=== PATIENT | female | born 1970 | race Caucasian/White ===

== ENCOUNTER 2021-06-11 12:14 | Observation (INO) | payer OTHER, SELFPAY ==
[2021-06-11] VITALS (17 sets, daily range): BP systolic 122–152; BP diastolic 65–88; PULSE 62–88; RESP 14–21; TEMP 36.4–37; O2SAT 98–100
--- NOTE | ~2021-06-11 | MR_ITS ---
EXAMINATION: MR brain/brain stem wo/w con DATE: 06/12/2021 09:03 INDICATION: Left hand and face numbness. Stroke. TECHNIQUE: Magnetic resonance imaging (MRI) of the brain and brainstem was performed without and with 13 mL MultiHance intravenous contrast. Sequences included sagittal and axial T1-weighted FSE, axial diffusion-weighted FS EPI, axial T2*-weighted GRE, axial T2-weighted FLAIR Propeller, and axial T2-we ighted Propeller. Postcontrast sequences included axial, sagittal, and coronal T1-weighted FSE. Appar ent diffusion coefficient (ADC) maps were created. COMPARISON: Head CT 06/11/2021 FINDINGS: There is no intracranial hemorrhage, acute infarction, or abnormal intracranial mass lesion . The ventricles are normal in size. There is mild mucosal thickening in the paranasal sinuses. The o rbits are normal. There is a right mastoid effusion. IMPRESSION: 1. Normal brain. Reviewed, dictated and finalized at location E. H CLEARING LABORER IMPRESSION: 1. Normal brain.
--- NOTE | ~2021-06-11 | CT_ITS ---
EXAMINATION: CTA brain carotid DATE: 06/13/2021 08:09 INDICATION: Left hand and face numbness. Transient ischemic attack. TECHNIQUE: Computed tomographic angiography (CTA) of the head was performed without and with 100 mL O mnipaque-350 intravenous contrast. CTA of the neck was performed with intravenous contrast. Automated exposure control and iterative reconstruction technique were employed. The dose-length product was 1 593.91 mGy-cm. Maximum intensity projection and volume rendered 3D-reconstructions were created by addie weiss technologist on a separate workstation. COMPARISON: Head CT 06/11/2021 FINDINGS: HEAD CTA: There is no intracranial hemorrhage, acute infarction, or abnormal intracranial mass lesion . The ventricles are normal in size. There is mild mucosal thickening in the paranasal sinuses. The o rbits are normal. There is a small right mastoid effusion. The vertebral arteries are codominant. The re is no significant stenosis of basilar artery or the posterior cerebral arteries. There is mild ricky nosis of the intracranial internal carotid arteries. There is no significant stenosis of the anterior or middle cerebral arteries. Anterior communicating artery is normal. The posterior communicating ar teries are normal. There is no aneurysm. NECK CTA: There are no pathologically enlarged lymph nodes. There is no significant stenosis of the v ertebral arteries. There is minimal plaque in the proximal internal carotid arteries. There is 0% ricky nosis of the proximal right internal carotid artery relative to normal distal artery lumen diameter ( NASCET criteria). There is 0% stenosis of the proximal left internal carotid artery relative to abimbola l distal artery lumen diameter. There is moderate cervical spondylosis. IMPRESSION: 1. Normal brain. No aneurysm or significant intracranial arterial stenosis. 2. 0% stenosis of the proximal internal carotid arteries relative to normal distal artery lumen diame ters (NASCET criteria). Reviewed, dictated and finalized at location E. RMATION SYSTEMS SECURITY DEVELOPER IMPRESSION: 1. Normal brain. No aneurysm or significant intracranial arterial stenosis. 2. 0% stenosis of the proximal internal carotid arteries relative to normal dis gloria artery lumen diameters (NASCET criteria).
--- NOTE | ~2021-06-11 | XR_ITS ---
XR chest 2V DATE: 06/11/2021 13:19 INDICATION: Stroke symptoms. Vision change. Left hand and facial numbness. TECHNIQUE: PA and lateral views COMPARISON: 04/26/2016 2 view chest FINDINGS: Normal heart size. No hilar or mediastinal enlargement. No pulmonary infiltrate or consolid ation, pleural effusion or pulmonary vascular congestion or pneumothorax. IMPRESSION: No active cardiopulmonary disease Reviewed, dictated and finalized at location B. GER FAST FOOD
--- NOTE | ~2021-06-11 | CT_ITS ---
EXAMINATION: CT brain wo con DATE: 06/11/2021 13:17 INDICATION: Left vision change. Numbness of left hand and face. Headache. TECHNIQUE: Computed tomography (CT) of the head was performed without intravenous contrast. The mA wa s adjusted according to patient size. Iterative reconstruction technique was employed. Exam dose: 60 5.33 mGy-cm total exam DLP. COMPARISON: 10/01/2004 CT brain FINDINGS: No intracranial mass lesion or hemorrhage or cerebrovascular accident. No midline shift or mass effect effect. Normal ventricular size. Mild bilateral carotid siphon internal carotid artery calcification. Normal call-white matter differe ntiation. The sella turcica and suprasellar area and orbits are unremarkable. No subdural or epidural hematoma is detected. There is minimal mucoperiosteal thickening along the lateral wall of left maxillary sinus. There are a few opacified right mastoid air cells. The included paranasal sinuses and the mastoid air cells oth erwise are normally developed and aerated. No fracture or bone destruction of the cranial vault. IMPRESSION: Mild internal carotid artery atherosclerotic calcification No acute intracranial abnormality is identified Reviewed, dictated and finalized at Location A. Reviewed, dictated and finalized at location B. AY TRAFFIC CONTROLLER
--- NOTE | ~2021-06-11 | US_ITS ---
EXAMINATION: US carotid duplex BI DATE: 06/12/2021 09:24 INDICATION: Transient ischemic episode with left-sided subjective visual and left-sided weakness and disturbance of skin sensation. TECHNIQUE: Grayscale, color Doppler, and pulsed Doppler images of the cervical carotid arteries were obtained. The degree of vessel stenosis is placed in one of the following categories: normal, <50%, 5 0-69%, >=70% but less than near-occlusion, near-occlusion, or total occlusion. Note that percent sten osis relative to normal distal artery lumen diameter is indirectly measured from velocity measurement s as described by Bret, et al. Radiology 2003; 229:340-346. COMPARISON: None. FINDINGS: RIGHT: The right common carotid artery (CCA) peak systolic velocity (PSV) is 109 cm/s. The right internal ca rotid artery (ICA) PSV is 151 cm/s. The right ICA end-diastolic velocity (EDV) is 49 cm/s. The right ICA/CCA PSV ratio is 1.1. Grayscale and color Doppler images yield an estimate of <50% diameter reduc tion from plaque in the ICA. The external carotid artery (ECA) PSV is 116 cm/s. There is antegrade fl ow in the right vertebral artery. LEFT: The left CCA PSV is 118 cm/s. The left ICA PSV is 118 cm/s. The left ICA EDV is 52 cm/s. The left ICA /CCA PSV ratio is 1.0. Grayscale and color Doppler images yield an estimate of <50% diameter reductio n from plaque in the ICA. The ECA PSV is 100 cm/s. There is antegrade flow in the left vertebral christian ry. IMPRESSION: 1. <50% stenosis in the right internal carotid artery. 2. <50% stenosis in the left internal carotid artery. Reviewed, dictated and finalized at location A. ITURE DUSTER
--- NOTE | 2021-06-11 13:02 | ECG_ITS ---
Measurements Intervals [place] Rate: 64 P: -5 AK: 105 QRS: 25 QRSD: 141 T: 62 QT: 468 QTc: 486 Interpretive Statements SINUS OR ECTOPIC ATRIAL RHYTHM WITH SHORT [place] INTERVAL LEFT BUNDLE BRANCH BLOCK ABNORMAL ECG Electronically Signed On 06-11-2021 16:13:44 FABRIC LAY OUT WORKER by Wilmer Jean D.O.
[2021-06-11] MEDS: SODIUM CHLORIDE 0.9% IV 1,000 ML 999 ML IV CONT (13:45)
[2021-06-11] MEDS: KETOROLAC 30 MG/ML VIAL (*BKC) IV PUSH (13:46)
[2021-06-11 13:48] LABS: Basophils Percent Auto 0.4 % (0.2-1.2); Eosinophils Absolute Auto 0.1 K/mm3 (0-0.3); Eosinophils Percent Auto 1.4 % (0-4.4); Hematocrit 38.7 % (37.0-47.0); Hemoglobin 12.6 g/dL (12.0-15.0); Immature Granulocyte Absolute 0.01 K/mm3 (0.00-0.031); Immature Granulocyte Percent A 0.2 % (0-0.5); Lymphocytes Absolute Auto 1.98 K/mm3 (0.9-3.2); Lymphocytes Percent Auto 40.4 % (18.3-44.2); Mean Corpuscular HGB Conc 32.6 g/dl (32-36); Mean Corpuscular Hemoglobin 30.7 pg (26-34); Mean Corpuscular Volume 94.4 fl (80-100); Mean Platelet Volume 10.8 fl (7.4-10.4); Monocytes Absolute Auto 0.4 K/mm3 (0.1-0.6); Monocytes Percent Auto 7.6 % (2.6-8.5); Neutrophils Absolute Auto 2.5 K/mm3 (1.3-6.7); Platelet Count Result 284 k/mm3 (150-375); Red Cell Distribution Width 12.2 % (11.5-14.5); White Blood Count 4.9 K/mm3 (4.5-10.0)
[2021-06-11] MEDS: diphenhydrAMINE HCl INJ 50 MG/ML VIAL 25 MG IV PUSH (13:49)
[2021-06-11] MEDS: METOCLOPRAMIDE HCL INJ 10 MG/2 ML VIAL IV PUSH (13:51)
[2021-06-11 13:58] LABS: Prothrombin Time 13.5 Seconds (11.1-14.7)
[2021-06-11 13:59] LABS: Partial Thromboplastin Time 26.2 SECONDS (22.3-36.8)
[2021-06-11 14:01] LABS: Anion Gap 5 mmol/L (8-16); Blood Urea Nitrogen 9 mg/dL (7-17); Carbon Dioxide 28 mmol/L (22-30); Chloride 104 mmol/L (98-107); Estimated Glomerular Filt Rate > 60; Glucose 96 mg/dL (65-110); Potassium 3.8 mmol/L (3.4-5.0); Sodium 137 mmol/L (137-145)
[2021-06-11 14:13] LABS: Troponin I < 0.012 ng/mL (0.000-0.034)
--- NOTE | 2021-06-11 15:47 | ED.GENADULT ---
HPI - General Adult General Chief complaint: Eye Problems Stated complaint: neuro issues Time Seen by Provider: 06/11/21 12:48 History of Present Illness HPI narrative: Patient is a 50-year-old female who presents ER with strokelike symptoms. At 1045 patient began having fluttering in her peripheral vision on the left side. She then lost vision in her left lower quadrant of each eye. This lasted 5 to 10 minutes. It was then followed by numbness to her left arm/face/tongue/throat. That lasted approximately 15 minutes. Symptoms then resolved and she developed a right-sided posterior headache. Denies history of migraines. Has had similar symptoms in the past that were actually more intense. That was several years ago at [facility] where she had an MRI and was discharged home. Denies any chest pain or chest pressure. No palpitations. No residual symptoms at this time. Related Data Allergies Allergy/AdvReac Type Severity Reaction Status Date / Time butorphanol Allergy Severe Confusion, Unverified 04/26/16 10:17 DIFFICULTY RESPONDING iohexol Allergy Hives Verified 06/11/21 13:05 [From contrast - CT, X-RAY] Review of Systems Review of Systems: All systems reviewed & are unremarkable except as noted in HPI and below Constitutional: Constitutional: Denies chills, Denies fever(s) and Denies weakness Eyes: Eyes: Reports change in vision and Denies photophobia ENT: Denies nasal congestion and Denies sore throat Cardiovascular: Cardiovascular: Denies chest pain, Denies rapid heart rate and Denies radiating jaw, neck or arm pain Respiratory: Respiratory: Denies cough, Denies dyspnea and Denies wheezing Gastrointestinal: Gastrointestinal: Denies abdominal pain, Denies nausea and Denies vomiting Neurologic: Reports dizziness, Reports headache(s), Denies focal weakness and Reports numbness PMFSH Past Medical History Medical History (Updated 06/11/21 @ 15:59 by Calvin Bustillos MD) Esophageal stricture Surgical History Surgical History (Updated 06/11/21 @ 15:52 by Calvin Bustillos MD) H/O bilateral salpingectomy History of colonoscopy Social History Social History (Updated 06/11/21 @ 15:52 by Calvin Bustillos MD) Smoking status: Never smoker Exam Narrative: GENERAL: Well-appearing, well-nourished, and in no acute distress. HEAD: Normocephalic, atraumatic. EYES: PERRL and EOMI. ENT: Mucous membranes moist. CHEST: Clear to auscultation. No respiratory distress. HEART: Regular rate and rhythm. Normal peripheral pulses. ABDOMEN: Soft, nontender, nondistended. EXTREMITIES: Normal range of motion. No edema. SKIN: Warm, dry, no rash. NEURO: No focal deficits. Cranial nerves II through XII intact. No upper or lower extremity drift. Normal finger-nose testing and normal [id number] testing. Alert and oriented x3. PSYCH: Normal mood and affect. Course Course Emergency Course: Patient resting comfortably. Discussed case with neurology. Recommends admission for observation MRI. Headache improved with migraine cocktail. Vital Signs Vital signs: Vital Signs Temperature 98.6 F 06/11/21 12:52 Pulse Rate 84 06/11/21 12:52 Respiratory Rate 15 06/11/21 12:52 Blood Pressure 122/65 06/11/21 12:52 Pulse Oximetry 100 06/11/21 12:52 Temperature 98.6 F 06/11/21 12:52 Pulse Rate 84 06/11/21 12:52 Respiratory Rate 15 06/11/21 12:52 Blood Pressure 122/65 06/11/21 12:52 Pulse Oximetry 100 06/11/21 12:52 Medical Decision Making Vital Signs Vital Signs: Vital Signs Temperature 98.6 F 06/11/21 12:52 Pulse Rate 84 06/11/21 12:52 Respiratory Rate 15 06/11/21 12:52 Blood Pressure 122/65 06/11/21 12:52 Pulse Oximetry 100 06/11/21 12:52 Temperature 98.6 F 06/11/21 12:52 Pulse Rate 84 06/11/21 12:52 Respiratory Rate 15 06/11/21 12:52 Blood Pressure 122/65 06/11/21 12:52 Pulse Oximetry 100 06/11/21 12:52 Lab Data R
--- NOTE | 2021-06-11 18:16 | ADMGEN ---
This patient, Leigh Ann Jay, was admitted to 2 Medical Room 260-01. Patient/family oriented to hospital policies and general routines including ID bracelet, bed and alarms, visiting hours, pain management, procedures, bathroom and other care routines, personal items, smoking policy, room service/diet, and visiting hours. Information on how to activate the Rapid Response Team has been discussed. Patient/Family are encouraged to report perceived risks to care and to ask questions if they do not understand what they are told or what they should do.
--- NOTE | 2021-06-11 19:53 | PM.IMHP ---
H&P: HPI History of Present Illness Date/Time: 06/11/21 19:53 Chief Complaint: Vision changes Narrative: This is a 50-year-old female with past medical history significant for former tobacco user, GERD. Patient presented to the emergency room after she had 1 episode of hemicrania pain loss of left lower quadrant vision loss numbness and tingling and prickly sensation of left side of the face and left upper extremity numbing of the tongue however no slurred speech, no focal motor deficit, no dizziness, no vertigo, no syncope, no near syncope, no nausea, no vomiting, no abdominal pain, no diarrhea, patient has been her usual state of health up until this, the night before she went to bed she was just fine as well as getting up early in the morning, the episode lasted for 15 minutes or so and had resolved by the time she decided to come to the emergency room and has not repeated for the reminder of the day. At the time of my visit patient denied any discomfort. Preliminary workup has been essentially nonrevealing. Review of Systems Review of Systems: Vision changes, numbness tingly prickly sensation of hemiface, hemicrania. Constitutional: Constitutional: Denies chills, Denies fatigue, Denies fever(s), Denies malaise, Denies night sweats, Denies weakness and Denies weight loss Eyes: Eyes: Reports change in vision Comments: Left lower quadrant vision loss ENT: Denies dysphagia, Denies vertigo, Denies dizziness, Denies nasal congestion, Denies nasal discharge, Denies nasal obstruction and Denies odynophagia Cardiovascular: Cardiovascular: Denies syncope, Denies pedal edema, Denies leg edema, Denies lightheadedness, Denies radiating jaw, neck or arm pain, Denies palpitations, Denies dyspnea on exertion and Denies orthopnea Respiratory: Respiratory: Denies cough, Denies excessive phlegm production and Denies dyspnea Gastrointestinal: Gastrointestinal: Denies abdominal pain, Denies dyspepsia, Denies heartburn, Denies diarrhea, Denies nausea and Denies vomiting Genitourinary: Genitourinary: Denies dysuria and Denies flank pain Musculoskeletal: Musculoskeletal: Denies muscle cramps, Denies muscle weakness and Reports tingling (Left upper extremity) Integumentary/Breasts: Skin/Breast: Denies rash Neurologic: Denies Neuro-related abnormal movements, Denies Abnormal speech present, Denies vertigo, Denies dizziness, Denies focal weakness, Reports loss of vision, Reports numbness, Denies Sensory deficit (Neuro) and Reports paresthesias Psychiatric: Psychiatric: Reports no additional psychiatric complaints and Reports as per HPI Endocrine: Endocrine: Denies cold intolerance, Denies fatigue, Denies flushing, Denies heat intolerance, Denies polyphagia, Denies polydipsia, Denies polyuria and Denies palpitations Hematologic/Lymphatic: Hematologic/Lymphatic: Reports no additional hematologic/lymphatic complaints and Reports as per HPI Allergic/Immunologic: Allergic/Immunologic: Reports no additional allergic/immunologic complaints and Reports as per HPI PMFSH Past Medical History Medical History (Updated 06/12/21 @ 02:32 by Lazaro Ivan MD) Esophageal stricture Surgical History Surgical History (Updated 06/11/21 @ 15:52 by Calvin Bustillos MD) H/O bilateral salpingectomy History of colonoscopy Family History Family History (Updated 06/11/21 @ 18:18 by Sophy Vance RN) Father Acute myocardial infarction, Onset Age: 46 Sibling Afib Pacemaker Mother Kidney malignancy Congestive heart failure Social History Social History (Updated 06/11/21 @ 15:52 by Calvin Bustillos MD) Smoking status: Former smoker Alcohol intake: current Drinks per week: 0 Substance use: current Substance use type: does not use Spiritual care concerns: No Meds Home Medications and Allergies Home Medications Medication Instructions Recorded Confirmed Type citalopram [Celexa] 20 mg PO HS 06/11/21 06/11/21 History ome
[2021-06-11] MEDS: CITALOPRAM HYDROBROMIDE 20 MG TABLET PO (20:50)
[2021-06-11] MEDS: PANTOPRAZOLE 40 MG TABLET PO (20:50)
[2021-06-11] MEDS: ACETAMINOPHEN 325 MG TABLET 650 MG PO (20:50)
[2021-06-12] VITALS (8 sets, daily range): BP systolic 118–144; BP diastolic 67–88; PULSE 61–81; RESP 16–20; TEMP 36.2–36.9; O2SAT 98–99
--- NOTE | 2021-06-12 | ECHO_ITS ---
Patient Info Name: Leigh Ann Jay Age: 50 years : 1970 Gender: Female Ht: 65 in Wt: 149 lbs BSA: 1.77 m2 HR: 68 bpm BP: 118 / 67 mmHg Heart Rhythm: Sinus Rhythm Exam Date: 06/12/2021 1:25 PM Exam Location: [facility] Patient Status: Inpatient Admit Date: 06/11/2021 Staff Ordering Physician: Bc Monteiro MD Management Lecturer: Bradnon Be, YOVANI, RT Attending Provider: Priscila Harris MD Exam Type: CA echo doppler w bubble study Study Info Indications G45.9 - Transient cerebral ischemic attack, unspecified Complete two-dimensional, color flow and Doppler transthoracic echocardiogram is performed. Strain analysis performed. Summary 1. Complete two-dimensional, color flow and Doppler transthoracic echocardiogram is performed. 2. Normal left ventricular size and thickness. Left ventricular systolic function is at the low end of normal, estimated ejection fraction 50-55%. Global longitudinal strain was mildly diminished at -15% consistent with a degree of systolic dysfunction. Mildly abnormal septal motion due to underlying bundle branch. Normal diastolic function. No segmental wall motion abnormalities. 3. Borderline left atrial enlargement. 4. No significant valve disease. 5. The atrial septum appears normal and intact. Bubble study was negative for [id number] shunting during normal respiration and Valsalva maneuver. 6. Normal sinus rhythm. Left Ventricle Left ventricular chamber dimension is normal. Left ventricular systolic function is normal, estimated at 50-55%. There is no increased left ventricular wall thickness. Left ventricular septal wall motion is abnormal with septal motion related to bundle branch block. The left ventricular diastolic function is normal. Global longitudinal strain is mildly elevated at -15 %. Right Ventricle Right ventricular chamber dimension is normal. Right ventricular systolic function is normal. Left Atria Left atrial chamber dimension is mildly enlarged. Right Atria Right atrial chamber dimension is normal. Aortic Valve The aortic valve is trileaflet. There is no aortic valve sclerosis. There is no aortic valve stenosis. There is no aortic valve regurgitation. Pulmonic Valve The pulmonic valve is normal. There is no pulmonic valve stenosis. There is no pulmonic regurgitation. Mitral Valve The mitral valve has normal leaflets. There is no mitral valve stenosis. There is trace mitral valve regurgitation. Tricuspid Valve The tricuspid valve leaflets are normal. There is no significant tricuspid valve stenosis. There is trace tricuspid valve regurgitation. No pulmonary hypertension, estimated pulmonary arterial systolic pressure is Empty. Pericardium/Pleural The pericardium appears normal. There is no pericardial effusion. Inferior Vena Cava Normal inferior vena cava with >50% collapse upon inspiration consistent with Empty right atrial pressure, Empty. Aorta The aortic root size at the sinus of Valsalva is normal. The prox ascending aorta size is normal. Left Ventricular Outflow Tract Name Value Normal LVOT 2D LVOT Diameter 2.0 cm LVOT Doppler
[2021-06-12] MEDS: ACETAMINOPHEN 325 MG TABLET 650 MG PO ×2 (07:41→15:52)
[2021-06-12] MEDS: PANTOPRAZOLE 40 MG TABLET PO ×2 (07:42→20:12)
--- NOTE | 2021-06-12 13:27 | PM.IMPN ---
Progress Note: A&P Assessment and Plan (1) TIA (transient ischemic attack): Code(s): G45.9 - Transient cerebral ischemic attack, unspecified Status: Acute Assessment and Plan: Patient with left facial and left hand numbness after having left homonymous quadrantanopia which can be associated with hemisensory loss. [place] related to occipital TIA. CT brain showing no acute findings. MRI brain also showing no acute findings. Carotid doppler showing <50% stenosis of the bilateral ICA. There is antegrade flow in the bilateral vertebral arteries. Will add ASA and Liipitor. Will check Echo with bubble and CTA of the head and neck. She will need pretreatment. Neuro consult. Consider Plavix but will discuss with neuro. (2) Left bundle branch block: Code(s): I44.7 - Left bundle-branch block, unspecified Status: Acute Assessment and Plan: EKG on admission shows sinus or ectopic atrial rhythm with short ID interval and left bundle branch block. She is unaware of having this finding by EKG. She states her last EKG was 3 years ago and there was no mention of this. No old EKGs here to compare. She is on telemetry showing no significant dysrhythmias. Will repeat EKG. Echocardiogram with bubble study was ordered. Spoke with cardiology who felt nothing further needed for evaluation except Echo with bubble. (3) Headache: Code(s): R51.9 - Headache, unspecified Status: Acute Assessment and Plan: Patient with right-sided posterior headache after resolution of her symptoms. Consider new onset of migraines but unusual for neurologic symptoms to present prior to the headache. No history of migraines. Will continue to follow. (4) Renal mass, right: Code(s): N28.89 - Other specified disorders of kidney and ureter Status: Acute Assessment and Plan: Patient with a recently diagnosed right renal mass of indeterminate significance. MRI of the brain without and with contrast showing no masses. Will have patient follow-up with primary care doctor for further evaluation and treatment for the renal masses. (5) DVT prophylaxis: Code(s): Z29.9 - Encounter for prophylactic measures, unspecified Status: Acute Assessment and Plan: SCDs Subjective Date/time seen: 06/12/21 13:27 Interval history: 50yo healthy female here for left vision loss, left facial and left UE numbness. Patient states symptoms have resolved. Her symptoms started with left lower outer quadrant vision loss that lasted 20 minutes before resolving. She later in the day developed left sided facial numbness and left hand numbness. She had similar symptoms 3 years ago but they were similar but as severe. No CP or SOb recently but mentions that she has had HERMOSILLO (with stairs for example) over the past year. She has been exercising recently with cardio without CP. No pedal edema. No hx of VTE. No family hx of VTE. Had COVID in March 2020 and has since been vaccinated. No hx of having a bundle branch block. Last EKG was 3 years ago that was 'normal'. She presented to the ED for these symptoms and while in the ED, she developed right posterior SINGH. No hx of migraines. No tobacco use. No facial rash. with 2 ectopic and 1 miscarriage. About 3 months ago, she had heamturia with workup including cystoscopy showing indeterminate renal masses. She has family hx of renal cell CA. Exam Narrative: AF 97.2 118/67 81 20 98% ra Gen - NARD Chest - CTA bilaterally, nml RR CV - RRR S1/S2. Tele showing BBB no signifincat dysrhythmias Abd - Soft, NT/ND, Positive BS Ext - No pedal edema Neuro - Alert and oriented. No focal weakness. Normal CN. Normal speech. patella DTR 2+ symmetric Psych - Nml mood and affect Skin - Warm and dry Objective Data Vital Signs Vital Signs: Vital Signs - 24 hr 06/11/21 13:30 06/11/21 14:02 06/11/21 14:15 Temperature Pulse Rate 66 74 72 Respiratory Rate 21 H 16 19
--- NOTE | 2021-06-12 14:00 | ECG_ITS ---
Measurements Intervals [place] Rate: 64 P: 57 MO: 122 QRS: 13 QRSD: 138 T: 64 QT: 437 QTc: 452 Interpretive Statements SINUS RHYTHM LEFT BUNDLE BRANCH BLOCK ABNORMAL ECG Electronically Signed On 06-12-2021 15:05:35 PUPPET DEVELOPER by Wilmer Jean D.O.
[2021-06-12 14:47] LABS: Alanine Aminotransferase 22 U/L (4-35); Albumin Level 4.1 g/dL (3.5-5.1); Alkaline Phosphatase 51 U/L (38-126); Aspartate Amino Transferase 26 U/L (14-36); Bilirubin,Total 0.5 mg/dL (0.2-1.3); Cholesterol 221 mg/dL (0-200); HDL Direct 52 mg/dL; Triglycerides 74 mg/dL (<150)
[2021-06-12 14:58] LABS: LDL Cholesterol Direct 149 mg/dL
[2021-06-12] MEDS: ASPIRIN 81 MG CHEWABLE TABLET PO (15:52)
[2021-06-12] MEDS: ATORVASTATIN 40 MG TABLET PO (15:52)
[2021-06-12 15:53] LABS: Folic Acid 15.5 ng/mL (2.76->20)
[2021-06-12] MEDS: predniSONE 40 MG, predniSONE 10 MG 50 MG PO (18:51)
[2021-06-12] MEDS: CITALOPRAM HYDROBROMIDE 20 MG TABLET PO (20:12)
[2021-06-12] MEDS: HYDROcodone/acetaminophen (*CRX) 5-325 MG TABLET 1 TAB PO (20:14)
[2021-06-13] VITALS: PULSE 66
[2021-06-13] MEDS: predniSONE 40 MG, predniSONE 10 MG 50 MG PO ×2 (01:03→06:52)
[2021-06-13 04:00] VITALS: PULSE 75
[2021-06-13 06:00] VITALS: BP 110/72; PULSE 83; RESP 20; TEMP 36.1; O2SAT 98
[2021-06-13] MEDS: diphenhydrAMINE HCl INJ 50 MG/ML VIAL IV PUSH (06:52)
[2021-06-13 08:04] VITALS: PULSE 83
[2021-06-13] MEDS: ASPIRIN 81 MG CHEWABLE TABLET PO (08:21)
[2021-06-13] MEDS: ATORVASTATIN 40 MG TABLET PO (08:22)
[2021-06-13] MEDS: PANTOPRAZOLE 40 MG TABLET PO (08:22)
--- NOTE | 2021-06-13 10:39 | WPDNEURCNPN ---
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 Consult date: 06/13/21 HPI: Leigh Ann Jay is a 50 year old femaleAdmitted to the hospital for the complaints of visual difficulties as per the information available she had pain on the left side of the head with visual loss in the left lower quadrant along with the numbness and tingling sensation of the left side of the face and left upper extremity in addition to the numbing of the tongue on the left side as well but with no focal motor deficit or slurred speech and no vertigo or syncopal episodes also no nausea vomiting or abdominal discomfort the whole episode lasted for about 15 minutes and was gone by the time she came to the emergency room. Patient does have ongoing history of tobacco use, GERD, esophageal stricture, bilateral salpingectomy. She is a former smoker by history and currently drinks alcohol, she has been taking citalopram 20 mg at night along with the omeprazole 40 mg daily, initial examination revealed her to have no focal neurological deficit, evaluation up until now included the echocardiogram which revealed borderline left atrial enlargement no significant valvular disease and intact and normal appearing atrial septum with negative bubble study she has been documented to have negative CT scan of the head, negative MRI of the brain, negative Doppler study of the carotid and negative head and neck CTA Review of Systems Review of Systems: All systems reviewed & are unremarkable except as noted in HPI and below PMFSH Past Medical History Medical History Esophageal stricture Surgical History Surgical History H/O bilateral salpingectomy History of colonoscopy Family History Family History Father Acute myocardial infarction, Onset Age: 46 Sibling Afib Pacemaker Mother Kidney malignancy Congestive heart failure Social History Social History Smoking status: Former smoker Alcohol intake: current Drinks per week: 0 Substance use: current Substance use type: does not use Spiritual care concerns: No Meds Home Medications and Allergies Home Medications Medication Instructions Recorded Confirmed Type citalopram [Celexa] 20 mg PO HS 06/11/21 06/11/21 History omeprazole 40 mg PO DAILY 06/11/21 06/11/21 History Allergies Allergy/AdvReac Type Severity Reaction Status Date / Time butorphanol Allergy Severe Confusion, Verified 06/11/21 16:40 DIFFICULTY RESPONDING iohexol Allergy Hives Verified 06/11/21 16:40 [From contrast - CT, X-RAY] Vital Signs Vital Signs - 24 hr 06/12/21 14:30 06/12/21 16:00 06/12/21 20:00 Temperature 36.9 C Pulse Rate 71 71 69 Respiratory Rate 16 Blood Pressure 130/88 Pulse Oximetry 99 06/12/21 22:00 06/13/21 00:00 06/13/21 04:00 Temperature 36.2 C L Pulse Rate 61 66 75 Respiratory Rate 20 Blood Pressure 144/84 H Pulse Oximetry 98 06/13/21 06:00 Temperature 36.1 C L Pulse Rate 83 Respiratory Rate 20 Blood Pressure 110/72 Pulse Oximetry 98 Exam Const: General: cooperative, healthy appearing, comfortable, no acute distress, alert and awake Nutritional Appearance: average body habitus Orientation/consciousness: oriented to person, oriented to place and oriented to time Limitations: no limitations HENMT: Head: normal to inspection and normocephalic Ears: hearing grossly normal bilaterally General nose exam: Normal external nose present Face and sinus: normal facial exam Mouth: Yes Normal oral and palatal mucosa present Eyes: G
[2021-06-13 12:01] VITALS: PULSE 101
--- NOTE | 2021-06-13 12:17 | PM.DS ---
DS: Admitting Diagnosis Discharge Date 06/13/21 Admitting Diagnosis left vision loss DS: Discharge Diagnosis Discharge Diagnosis (1) TIA (transient ischemic attack): Code(s): G45.9 - Transient cerebral ischemic attack, unspecified Status: Acute Assessment and Plan: Patient with left facial and left hand numbness after having left homonymous quadrantanopia. [place] related to occipital TIA vs complex migraine. CT brain showing no acute findings. MRI brain also showing no acute findings. Carotid doppler showing <50% stenosis of the bilateral ICA. There is antegrade flow in the bilateral vertebral arteries. CTA head/neck showing no significant findings. We added ASA and Lipitor. Neuro consulted and appreciate their input. No further episodes while hospitalized. (2) Left bundle branch block: Code(s): I44.7 - Left bundle-branch block, unspecified Status: Acute Assessment and Plan: EKG on admission shows sinus or ectopic atrial rhythm with short [place] interval and left bundle branch block. She is unaware of having this finding by EKG. She states her last EKG was 3 years ago and there was no mention of this. No old EKGs here to compare. She was on telemetry showing no significant dysrhythmias. Echocardiogram with bubble study normal LV size and thickness with systolic function at the low end of normal (EF 50-55%). Some degree of systolic dysfunction. Normal diastolic function and no segmental wall motion abnormalities. No significant valve disease. The atrial septum appears normal and intact with negative Bubble study. (3) Headache: Code(s): R51.9 - Headache, unspecified Status: Acute Assessment and Plan: Patient with right-sided posterior headache after resolution of her neurologic symptoms. Consider new onset of migraines. No history of migraines. As above. (4) Renal mass, right: Code(s): N28.89 - Other specified disorders of kidney and ureter Status: Acute Assessment and Plan: Patient with a recently diagnosed right renal mass of indeterminate significance. MRI of the brain without and with contrast showing no masses. Patient to follow-up with primary care doctor for further evaluation and treatment for the renal masses. DS: Summary Hospital Course Reason for hospitalization: 50yo healthy female here for left vision loss, left facial and left UE numbness. Please see H&P for details. Hospital Course: Please see above for details of hospital course. Status at Discharge Cognitive/behavioral status at discharge: Stable Time Spent with Patient Time attestation: Total time spent providing and/or coordinating discharge services: 35 minutes Time spent: Greater than 30 minutes Specific discharge activities: Discussed with neurology. Discussion with patient. Side effect of medications discussed. Exam Narrative: AF 97.0 110/72 83 20 98% ra Gen - NARD Chest - CTA bilaterally, nml RR CV - RRR S1/S2. Tele showing no significant dysrhythmias Abd - Soft, NT/ND, Positive BS Ext - No pedal edema Neuro - Alert and oriented. No focal findings Psych - Nml mood and affect Skin - Warm and dry DS: Data Data Completed and Pending Labs on day of discharge: Labs from last 24 hours 06/12/21 06/12/21 06/12/21 14:26 14:26 14:26 Total Bilirubin 0.5 Direct Bilirubin 0.0 AST 26 ALT 22 Alkaline Phosphatase 51 Total Protein 7.0 Albumin 4.1 Triglycerides 74 Cholesterol 221 H LDL Cholesterol Direct 149 HDL Direct 52 Vitamin B12 581.0 Folate 15.5 TSH (Reflex) 1.430 GRACE Screen Pending Discharge Plan Discharge Attending physician on discharge: Bc Monteiro Consulting providers: Michele King Discharging Clinician: Bc Monteiro Anticipated Discharge Date/Time: 06/13/21 12:28 Patient Disposition: Home, Self-Care Activity: as tolerated Diet: heart healthy
--- NOTE | 2021-06-17 08:51 | PC.NURSE ---
GRACE is negative. Dr. Thania townsend.
== END 2021-06-13 12:29 | disposition home or self-care (01) ==
LOC: ANHED 15:59 → ANH2MED 06-13 12:29
PROVIDERS: Admitting Provider Internal Medicine; Emergency Provider Emergency Medicine; PCP Internal Medicine; Visit Provider Internal Medicine
DX: G45.9 Transient cerebral ischemic attack, unspecified (principal); R51.9 Headache, unspecified; H53.462 Homonymous bilateral field defects, left side; H53.461 Homonymous bilateral field defects, right side; I44.7 Left bundle-branch block, unspecified; N28.89 Other specified disorders of kidney and ureter; K21.9 Gastro-esophageal reflux disease without esophagitis; K22.2 Esophageal obstruction; Z80.51 Family history of malignant neoplasm of kidney
CPT/HCPCS: 36415; 70450; 70496; 70498; 70553; 71046; 80048; 80061; 80076; 82607; 82746; 84443; 84484; 85025; 85610; 85730; 86038; 93005; 93306; 93880; 96361; 96374; 96375; 99285; A9270; A9577; G0378; J1200; J1885; J2765; J7030; J7512; Q9967

== ENCOUNTER 2021-11-26 01:22 | Day surgery (SDC) | payer OTHER, SELFPAY ==
[2021-11-12 13:43] VITALS: BMI 26.2
[2021-11-26 07:22] VITALS: BP 116/76; PULSE 85; RESP 16; TEMP 36.7; O2SAT 99; BMI 25.9
[2021-11-26] MEDS: LACTATED RINGERS 1,000 ML 150 ML IV CONT (07:32)
--- NOTE | 2021-11-26 08:04 | WPDANESEPPF ---
Anes - Initial Pre Proc Eval Procedure: Operation Date: 11/26/21 08:30 Proposed Procedures p Esophagogastroduodenoscopy & Screening Colonoscopy - Pardeep Camarena MD Date/Time: 11/26/21 08:04 Surgeon: Pardeep Camarena MD Pre Op Diagnosis: neoplasm screening, nausea, vomiting Patient Data Age: 51 Gender: F Height: 1.63 m Weight: 68.5 kg Last Vital Signs Temp 98.1 F 11/26/21 07:22 Pulse 85 11/26/21 07:22 Resp 16 11/26/21 07:22 BP 116/76 11/26/21 07:22 Pulse Ox 99 11/26/21 07:22 O2 Del Method Room Air 11/26/21 07:22 Allergies Allergy/AdvReac Type Severity Reaction Status Date / Time butorphanol Allergy Severe Confusion, Verified 11/26/21 07:21 DIFFICULTY RESPONDING iohexol Allergy Hives Verified 11/26/21 07:21 [From contrast - CT, X-RAY] Home Medications Medication Instructions Recorded Confirmed Type citalopram 20 mg tablet (Celexa) 20 mg PO HS 06/11/21 11/26/21 History omeprazole 40 mg capsule,delayed 40 mg PO DAILY 06/11/21 11/26/21 History release aspirin 81 mg chewable tablet 81 mg PO DAILY@0800 #30 tabs 06/13/21 11/26/21 Rx (Children's Aspirin) atorvastatin 40 mg tablet 40 mg PO DAILY #30 tabs 06/13/21 11/26/21 Rx metoclopramide HCl 5 mg tablet 5 mg PO .TID AC #90 tabs 10/08/21 11/26/21 Rx (Reglan) ezetimibe 10 mg tablet 10 tablet PO DAILY 11/12/21 11/26/21 History Patient hx anesthesia problems: none Family hx anesthesia problems: none Results Review: All pre-operative results and documents have been reviewed as part of the pre-operative evaluation. [facility] Past Medical History Medical History (Updated 09/18/21 @ 14:07 by Pardeep Camarena MD) Asthma Colon cancer screening Duodenal ulcer Esophageal stricture Gastroparesis GERD (gastroesophageal reflux disease) Surgical History Surgical History H/O bilateral salpingectomy History of colonoscopy Family History Family History Father Acute myocardial infarction, Onset Age: 46 Sibling Afib Pacemaker Mother Kidney malignancy Congestive heart failure Social History Social History Smoking status: Former smoker Alcohol intake: current Drinks per week: 0 Substance use: current Substance use type: does not use Spiritual care concerns: No Anes - Eval Final PreProcedure Day of Procedure 11/26/21 08:04 Patient weight: normal Heart: regular rate and rhythm Lungs: clear to auscultation Airway: Mallampati scale class II Neurological: alert and oriented Last oral intake: >/= 8 hours ASA classification: II Emergent: no Anesthetic plan: proceed Anesthesia type and monitoring: general GIVS and standard monitoring Results Review: All pre-operative results and documents have been reviewed as part of the pre-operative evaluation. Informed Consent: The patient's anesthetic plan and its attendant risks and benefits were discussed with the patient/family/POA. Questions were solicited and answers provided to the satisfaction of the patient/family/POA.
--- NOTE | 2021-11-26 08:13 | PM.HPGS ---
History of Present Illness History of Present Illness Consent: Risks, benefits, and alternatives have been discussed and questions answered. Patient agrees to proceed with procedure. Chief complaint: neoplasm screening, nausea, vomiting Narrative: Leigh Ann Jay is a 51 year old female here for egd and colonoscopy. She was diagnosed with IBS (had colonoscopy 2012 with normal random colon bx- reviewed), EGD 2008. She has gerd on ppi for years, also had abnormal GES consistent with mild-moderate gastroparesis. Started on reglan last visit because had more regurgitation and thinks that is helping Review of Systems Constitutional: Constitutional: Denies headache(s) and Denies weakness Eyes: Eyes: Denies blurry vision ENT: Reports Normal hearing present, Denies headache(s) and Denies neck pain Cardiovascular: Cardiovascular: Denies chest pain and Denies dyspnea Respiratory: Respiratory: Denies dyspnea Gastrointestinal: Gastrointestinal: Reports no additional gastrointestinal complaints Genitourinary: Genitourinary: Denies dysuria Musculoskeletal: Musculoskeletal: Denies neck pain Integumentary/Breasts: Skin/Breast: Denies dry skin Neurologic: Reports Normal hearing present, Denies headache(s) and Denies weakness Psychiatric: Psychiatric: Denies anxiety Endocrine: Endocrine: Denies change in body appearance Hematologic/Lymphatic: Hematologic/Lymphatic: Denies easy bleeding Allergic/Immunologic: Allergic/Immunologic: Denies urticaria PMFSH Past Medical History Medical History (Updated 09/18/21 @ 14:07 by Pardeep Camarena MD) Asthma Colon cancer screening Duodenal ulcer Esophageal stricture Gastroparesis GERD (gastroesophageal reflux disease) Surgical History Surgical History H/O bilateral salpingectomy History of colonoscopy Family History Family History Father Acute myocardial infarction, Onset Age: 46 Sibling Afib Pacemaker Mother Kidney malignancy Congestive heart failure Social History Social History Smoking status: Former smoker Alcohol intake: current Drinks per week: 0 Substance use: current Substance use type: does not use Spiritual care concerns: No Meds Home Medications and Allergies Home Medications Medication Instructions Recorded Confirmed Type citalopram 20 mg tablet (Celexa) 20 mg PO HS 06/11/21 11/26/21 History omeprazole 40 mg capsule,delayed 40 mg PO DAILY 06/11/21 11/26/21 History release aspirin 81 mg chewable tablet 81 mg PO DAILY@0800 #30 tabs 06/13/21 11/26/21 Rx (Children's Aspirin) atorvastatin 40 mg tablet 40 mg PO DAILY #30 tabs 06/13/21 11/26/21 Rx metoclopramide HCl 5 mg tablet 5 mg PO .TID AC #90 tabs 10/08/21 11/26/21 Rx (Reglan) ezetimibe 10 mg tablet 10 tablet PO DAILY 11/12/21 11/26/21 History Allergies Allergy/AdvReac Type Severity Reaction Status Date / Time butorphanol Allergy Severe Confusion, Verified 11/26/21 07:21 DIFFICULTY RESPONDING iohexol Allergy Hives Verified 11/26/21 07:21 [From contrast - CT, X-RAY] Vital Signs Vital Signs - 24 hr 11/26/21 07:22 Temperature 98.1 F Pulse Rate 85 Respiratory Rate 16 Blood Pressure 116/76 Pulse Oximetry 99 Oxygen Delivery Room Air Exam Const: General: comfortable and no acute distress HENMT: General nose exam: Normal nares present Eyes: General: appearance normal, both eyes and all related structures Neck: Neck: no JVD Resp: Auscultation: clear to auscultation bilaterally Cardio: Rate: regular rate Rhythm: regular rhythm GI: Inspection: non-distended GI Palp: Yes Soft to palpation Skin: General skin exam: normal color Neuro: General: gait normal Speech: normal speech Extrem: General: normal to inspection Psych: Mental
--- NOTE | 2021-11-26 08:35 | SUR.OPER ---
EGD completed at 829, Colonoscopy started 833
[2021-11-26 08:48] VITALS: BP 113/60; PULSE 79; RESP 16; O2SAT 100
[2021-11-26 08:58] VITALS: BP 115/70; PULSE 75; RESP 17; O2SAT 100
[2021-11-26 09:08] VITALS: BP 135/85; PULSE 75; RESP 21; O2SAT 100
== END 2021-11-26 09:16 | disposition home or self-care (01) ==
PROVIDERS: PCP Internal Medicine; Visit Provider Internal Medicine Gastroenterology
PROC: 0DJ08ZZ Inspection of Upper Intestinal Tract, Via Natural or Artificial Opening Endoscopic (ICD-10-PCS; CPT 43235; principal; 2021-11-26 08:30)
DX: Z12.11 Encounter for screening for malignant neoplasm of colon (principal); K63.5 Polyp of colon; K29.70 Gastritis, unspecified, without bleeding; K58.9 Irritable bowel syndrome, unspecified; K31.84 Gastroparesis; Z79.82 Long term (current) use of aspirin; Z87.891 Personal history of nicotine dependence
CPT/HCPCS: 45385; 43239; 88305; J2704; J7120

== ENCOUNTER 2022-07-29 09:22 | Outpatient (CLI) | payer OTHER, SELFPAY ==
[2022-07-29 10:21] LABS: Hematocrit 38.5 % (37.0-47.0); Hemoglobin 12.5 g/dL (12.0-15.0); Mean Corpuscular HGB Conc 32.5 g/dl (32-36); Mean Corpuscular Hemoglobin 30.9 pg (26-34); Mean Corpuscular Volume 95.1 fl (80-100); Mean Platelet Volume 11.1 fl (7.4-10.4); Platelet Count Result 313 k/mm3 (150-375); Red Blood Count 4.05 M/mm3 (4.2-5.4); Red Cell Distribution Width 12.8 % (11.5-14.5); White Blood Count 4.8 K/mm3 (4.5-10.0)
[2022-07-29 10:29] LABS: Alanine Aminotransferase 36 U/L (6-35); Albumin Level 4.3 g/dL (3.5-5.1); Alkaline Phosphatase 71 U/L (38-126); Anion Gap 8 mmol/L (8-16); Aspartate Amino Transferase 31 U/L (14-36); Bilirubin,Total 0.7 mg/dL (0.2-1.3); Blood Urea Nitrogen 10 mg/dL (7-17); CRP 0.6 mg/dL (<1.0); Calcium 8.9 mg/dL (8.4-10.2); Carbon Dioxide 25 mmol/L (22-30); Chloride 106 mmol/L (98-107); Estimated Glomerular Filt Rate > 60; Glucose 100 mg/dL (65-110); Sodium 139 mmol/L (137-145)
[2022-07-29 11:21] LABS: Erythrocyte Sedimentation Rate 17 mm/hr (0-20)
== END 2022-07-29 09:23 | disposition home or self-care (01) ==
LOC: ANHLAB 09:24
PROVIDERS: PCP Internal Medicine; Visit Provider Nurse Practitioner
DX: R19.7 Diarrhea, unspecified (principal); R10.9 Unspecified abdominal pain; R10.825 Periumbilic rebound abdominal tenderness
CPT/HCPCS: 36415; 80053; 84443; 85027; 85652; 86140

== ENCOUNTER 2022-08-19 08:00 | Outpatient (CLI) | payer OTHER, SELFPAY ==
--- NOTE | ~2022-08-19 | CT_ITS ---
CT of the Abdomen and Pelvis: Indication: Periumbilical pain Technique: 2.5 mm axial scans were obtained through the abdomen and pelvis following intravenous adm inistration of 100 cc of Omnipaque 350. Dose reduction technique was used on this scan by utilizing a utomated exposure control and iterative reconstruction technique. The dose-length product (DLP) was 4 07.27 mGy-cm. Findings: Scans through the lung bases are unremarkable. The liver, spleen, pancreas, adrenals and kidneys are within normal limits. Multiple gallstones are n oted. No evidence of aortic aneurysm. No lymphadenopathy. No bowel obstruction or bowel wall thickening. There is no evidence to suggest acute appendicitis. Images through the pelvis were performed. Urinary bladder unremarkable. No definite adnexal mass seen . No ascites. Impression: Cholelithiasis. Reviewed, dictated and finalized at [facility]. Impression: Cholelithiasis.
== END 2022-08-19 08:01 | disposition home or self-care (01) ==
PROVIDERS: PCP Internal Medicine; Visit Provider Nurse Practitioner
DX: R10.815 Periumbilic abdominal tenderness (principal); K80.20 Calculus of gallbladder without cholecystitis without obstruction
CPT/HCPCS: 74177; Q9967

== ENCOUNTER 2022-09-16 06:50 | Day surgery (SDC) | payer OTHER, SELFPAY ==
[2022-09-01 10:49] VITALS: BMI 25.0
--- NOTE | 2022-09-15 12:08 | WPDANESEPPF ---
Anes - Initial Pre Proc Eval Procedure: Operation Date: 09/16/22 08:30 Proposed Procedures p Laparoscopic Cholecystectomy - Romaine Church DO Date/Time: 09/15/22 12:08 Surgeon: Romaine Church DO Pre Op Diagnosis: Symptomatic Cholelithiasis Patient Data Age: 52 Gender: F Height: 1.63 m Weight: 66 kg Allergies Allergy/AdvReac Type Severity Reaction Status Date / Time butorphanol Allergy Severe Confusion, Verified 09/16/22 07:22 DIFFICULTY RESPONDING iohexol Allergy Severe Hives Verified 09/16/22 07:22 [From contrast - CT, X-RAY] shellfish derived Allergy Severe Hives Verified 09/16/22 07:22 Home Medications Medication Instructions Recorded Confirmed Type citalopram 20 mg tablet (Celexa) 20 mg PO HS 06/11/21 09/16/22 History atorvastatin 40 mg tablet 40 mg PO DAILY #30 tabs 06/13/21 09/16/22 Rx metoclopramide HCl 5 mg tablet 5 mg PO .TID AC #90 tabs 10/08/21 09/16/22 Rx (Reglan) omeprazole 40 mg capsule,delayed 40 mg PO BID 1 month #60 caps 11/26/21 09/16/22 Rx release ondansetron HCl 4 mg tablet 4 mg PO PRN PRN Nausea 09/01/22 09/16/22 History vibegron 75 mg tablet (Gemtesa) 75 mg PO DAILY 09/01/22 09/16/22 History Patient hx anesthesia problems: none Family hx anesthesia problems: none Results Review: All pre-operative results and documents have been reviewed as part of the pre-operative evaluation. [facility] Past Medical History Medical History Abdominal cramping Acute diarrhea Anxiety and depression Asthma Blood in stool Cholelithiasis Colon cancer screening Duodenal ulcer Ectopic 03/11/95 01/17/02 Esophageal stricture Gastroparesis GERD (gastroesophageal reflux disease) Miscarriage Periumbilical abdominal tenderness with rebound tenderness Screening mammogram, encounter for Surgical History Surgical History History of colonoscopy History of endometrial ablation History of gynecologic surgery treatment of ectopic x2 History of robot-assisted laparoscopic hysterectomy (06/23/12) RA TLH--fibroids History of suburethral sling procedure (~2010) Family History Family History Father Acute myocardial infarction, Onset Age: 46 Heart disease Hypertension Sibling Afib Pacemaker Mother Kidney malignancy Congestive heart failure Heart disease Hypertension Malignant tumor of urinary bladder Primary malignant neoplasm of urethra Breast cancer, Onset Age: 72 triple negative breast cancer Daughter Diabetes mellitus Grandparent Cerebrovascular accident maternal grandmother Social History Social History Smoking status: Never smoker Alcohol intake: never Drinks per week: 0 Substance use: never Substance use type: does not use Living arrangements: alone Additional living arrangements comments: 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 Gender identity (if verbalized by the patient): Female Sexual Orientation (if Verbalized by the Patient): Straight or Heterosexual Spiritual care concerns: No Anes - Eval Final PreProcedure Day of Procedure 09/15/22 12:08 Patient weight: normal Heart: regular rate and rhythm Lungs: clear to auscultation Airway: Mallampati scale class II Neurological: alert and oriented Last oral intake: >/= 8 hours ASA classification: II Emergent: no Anesthetic plan: proceed Anesthesia type and monitoring: general ETT and standard monitoring Results Review: All pre-operative results and documents have been reviewed as part of the pre-operative evaluation. Informed Consent: The patient's anesthetic plan and its attendant risks and benefits were discussed with the patient/family/POA. Questions
[2022-09-16] VITALS (9 sets, daily range): BP systolic 119–140; BP diastolic 74–86; PULSE 73–106; RESP 12–18; TEMP 36.7–36.8; O2SAT 94–100
[2022-09-16] MEDS: ACETAMINOPHEN 500 MG TABLET 1000 MG PO (07:42)
[2022-09-16] MEDS: LACTATED RINGERS 1,000 ML 30 ML IV CONT ×2 (07:52→09:55)
[2022-09-16] MEDS: CHLORHEXIDINE GLUCONATE 4% SOL 120 ML BTL 1 APPLIC TOPICAL (07:52)
--- NOTE | 2022-09-16 08:04 | WPDHPUPDATE1 ---
History and Physical Update Update Date/Time: 09/16/22 08:04 History and Physical has been reviewed, including an updated exam of the patient. There are NO changes in the patient's condition. Risks, benefits, and alternatives have been discussed and questions answered. Patient agrees to proceed with procedure.
[2022-09-16] MEDS: ceFAZolin SODIUM 2 GM/20 ML SW SYRINGE IV PUSH (08:49)
--- NOTE | 2022-09-16 09:49 | W.PM.PROC2 ---
Procedure Note - Detailed Date of Procedure 09/16/22 Pre-op Diagnosis Symptomatic Cholelithiasis Post-op Diagnosis Same Procedure Performed Laparoscopic cholecystectomy Surgeon Romaine Church, DO Anesthesia General and Local (0.5% bupivacaine) Indications this is a 52-year-old woman who presents with intermittent right upper quadrant pain over the past 2-3 months. She has had multiple episodes lasting about 30 minutes. She had a CT of her abdomen and pelvis performed on 08/19/2022 which showed evidence of cholelithiasis. She has a strong family history of gallbladder problems as well. Discussions were made with the patient about treatment options and decision was made to proceed with laparoscopic cholecystectomy, possible open. Findings Laparoscopic cholecystectomy was performed. The gallbladder had multiple gallstones and a few pericholecystic adhesions. The cystic duct appeared normal in size. No other significant abnormalities were seen. The gallbladder was removed and sent to the lab for pathology. Description of Procedure Procedure as well as risks, benefits, and alternatives were discussed with patient. Written consent was obtained and placed in chart prior to procedure. The patient was brought back to surgical suite. Patient was placed in supine position on operating table. Time-out was done to confirm patient and procedure. Patient was then intubated by the anesthesia department. Abdomen was prepped and draped in sterile fashion using chlorhexidine prep. 0.5% bupivacaine with epinephrine was infiltrated at each site of incision. An 11 millimeter vertical incision was made at the superior portion of the umbilicus using a 15 blade scalpel. Blunt dissection was carried down to the linea alba. The linea alba was then incised using a 15 blade scalpel. The peritoneum was then bluntly entered. An 11 millimeter trocar was inserted and carbon dioxide insufflation was used to create a pneumoperitoneum. The camera was inserted and the abdomen was inspected. The patient was placed in reverse Trendelenberg position and rotated slightly to the left. A 5 millimeter incision was made in the epigastric region, and a 5 millimeter trocar was inserted under direct visualization. Two 5 millimeter incisions were made in the right upper quadrant, and two 5 millimeter trocars were inserted under direct visualization. The gallbladder was identified and grasped at the fundus and retracted superiorly. It was then grasped at the infundibulum retracted laterally. Careful dissection around the neck of the gallbladder was performed using blunt dissection with a [place] grasper and hook electrocautery. The cystic duct was identified, and a window was created behind it. The cystic artery was also identified and a window was created behind it. The critical view of safety was identified, visualizing the cystic duct running directly into the neck of the gallbladder, and the cystic artery running directly into the wall of the gallbladder. A 5 millimeter clip japanese tutor was then used to place 2 clips proximally and 1 clip distally on both the cystic duct and cystic artery. They were then both transected using endoscopic scissors. Once safely away from the gatito hepatitis, the gallbladder was dissected free from the liver bed using hook electrocautery. Hemostasis was achieved along the way. The gallbladder was removed completely and then removed through the umbilical port. The liver bed was then inspected. Hemostasis appeared adequate, and our clips appeared secure. The area was gently irrigated with sterile saline. No other abnormalities were seen. The patient was flattened out in bed, and 1 final inspection was made around the abdominal cavity. The ports were then removed under direct visualization, the camera was removed, and the pneumoperitoneum was released. The fascia of the umbilical incision was approximated using an 0 Vicryl [id number] suture. The
[2022-09-16] MEDS: BUPIVACAINE/EPINEPHRINE 0.5% 50 ML VIAL 30 ML INFILTRATE (09:57)
--- NOTE | 2022-09-22 08:41 | WPDANESPN ---
Anes - Prog Note Post-Op Date/Time: 09/22/22 08:41 Cardiovascular status: normal Respiratory status: normal Airway patency: baseline Mental status: baseline Post-Op hydration status: normal Vital Signs: Last Vital Signs Temp 36.7 C 09/16/22 09:55 Pulse 75 09/16/22 11:16 Resp 18 09/16/22 11:16 BP 125/81 09/16/22 11:16 Pulse Ox 95 09/16/22 11:16 O2 Del Method Room Air 09/16/22 11:16 O2 Flow Rate 5 09/16/22 09:55 Pain Score (VAS): 0 Post-procedural complaints: none Patient Feedback: Patient satisfied with anesthetic care.
== END 2022-09-16 11:35 | disposition home or self-care (01) ==
PROVIDERS: PCP Internal Medicine; Visit Provider Surgery
PROC: 0FT44ZZ Resection of Gallbladder, Percutaneous Endoscopic Approach (ICD-10-PCS; CPT 47562; principal; 2022-09-16 08:30)
DX: K80.20 Calculus of gallbladder without cholecystitis without obstruction (principal)
CPT/HCPCS: 47562

== ENCOUNTER 2022-09-16 12:16 | Outpatient (NON) | payer OTHER, SELFPAY | END 2022-09-16 12:17 | disposition home or self-care (01) | LOC: ANHLAB 09-17 12:18 | PROVIDERS: PCP Internal Medicine; Visit Provider Surgery | DX: K80.10 Calculus of gallbladder with chronic cholecystitis without obstruction (principal) | CPT/HCPCS: 88304 ==

== ENCOUNTER 2022-12-05 10:15 | Emergency (ER) | payer OTHER, SELFPAY ==
--- NOTE | 2022-12-05 10:16 | ED.FEMALEGU ---
HPI - Female Genitourinary General Chief complaint: Urogenital-Female Stated complaint: Female Urogenital Time Seen by Provider: 12/05/22 10:16 Source: patient Mode of arrival: ambulatory Limitations: no limitations History of Present Illness HPI Narrative: Leigh Ann is a 52-year-old female patient presenting to the clinic today with complaints of possible urinary tract infection. She reports she has been having some pain in the bladder, left-sided flank pain, nausea, and some discomfort with urination. This has been going on for 2-3 days. She denies any fever or chills. Denies any vaginal discharge. Related Data Home Medications Medication Instructions Recorded Confirmed citalopram 20 mg tablet (Celexa) 20 mg PO HS 06/11/21 12/05/22 oxybutynin chloride 10 mg 10 mg PO DAILY 12/05/22 12/05/22 tablet,extended release 24 hr Allergies Allergy/AdvReac Type Severity Reaction Status Date / Time butorphanol AdvReac Intermediate Confusion, Verified 12/05/22 10:27 DIFFICULTY RESPONDING iohexol AdvReac Mild Hives Verified 12/05/22 10:27 [From contrast - CT, X-RAY] shellfish derived AdvReac Mild Hives Verified 12/05/22 10:27 Review of Systems Review of Systems: Pertinent positives per HPI. Patient denies any fever, chills, rash, headache, visual changes, dizziness, cough, runny nose, sore throat, shortness of breath, chest pain, palpitations, vomiting, diarrhea, constipation. PMFSH Past Medical History Medical History Abdominal cramping Acute diarrhea Anxiety and depression Asthma Blood in stool Cholelithiasis Colon cancer screening Duodenal ulcer Ectopic 03/11/95 01/17/02 Esophageal stricture Gastroparesis GERD (gastroesophageal reflux disease) Miscarriage Periumbilical abdominal tenderness with rebound tenderness Screening mammogram, encounter for Surgical History Surgical History History of colonoscopy History of endometrial ablation History of gynecologic surgery treatment of ectopic x2 History of robot-assisted laparoscopic hysterectomy (06/23/12) RA TLH--fibroids History of suburethral sling procedure (~2010) Hx laparoscopic cholecystectomy 09/16/22 Family History Family History Father Acute myocardial infarction, Onset Age: 46 Heart disease Hypertension Sibling Afib Pacemaker Mother Kidney malignancy Congestive heart failure Heart disease Hypertension Malignant tumor of urinary bladder Primary malignant neoplasm of urethra Breast cancer, Onset Age: 72 triple negative breast cancer Daughter Diabetes mellitus Grandparent Cerebrovascular accident maternal grandmother Social History Social History Smoking status: Never smoker Alcohol intake: never Drinks per week: 0 Substance use: never Substance use type: does not use Living arrangements: alone Additional living arrangements comments: 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 There is no relevant family history pertinent to the patient complaint. Exam Narrative: General: Well-developed, well nourished, in no apparent distress. Head: Normocephalic, atraumatic. Cardio: Regular rate and rhythm, s1 and s2 normal, no murmur appreciated. Resp: Clear to auscultation bilaterally, no rhonchi, rales, wheezing or rubs. Abdomen: Soft, pliable, bowel sounds present i
[2022-12-05 10:25] VITALS: BP 137/75; PULSE 88; RESP 16; TEMP 35.3; O2SAT 99
== END 2022-12-05 10:40 | disposition home or self-care (01) ==
PROVIDERS: Emergency Provider Nurse Practitioner Family; PCP Internal Medicine
DX: N12 Tubulo-interstitial nephritis, not specified as acute or chronic (principal); N39.0 Urinary tract infection, site not specified; J45.909 Unspecified asthma, uncomplicated; K21.9 Gastro-esophageal reflux disease without esophagitis; K31.84 Gastroparesis
CPT/HCPCS: 81003; 87077; 87086; 87186; 99213; G0463

== ENCOUNTER 2023-03-06 18:16 | Emergency (ER) | payer OTHER, SELFPAY ==
--- NOTE | 2023-03-06 18:20 | ED.SKABFB ---
HPI - Skin/Abscess/Foreign Bdy General Chief complaint: Wound/Laceration Stated complaint: insect bite Time Seen by Provider: 03/06/23 18:19 Source: patient Mode of arrival: ambulatory Limitations: no limitations History of Present Illness HPI narrative: Leigh Ann is a 52-year-old female patient presenting to the clinic today with complaints of a possible insect bite to her right anterior thigh. She reports she 1st noticed this on Wednesday. States yesterday a popped and there was some pus that drained from the wound. Today is scabbed over tender to palpation and she states that the redness around the area is increasing. No fever or chills. Related Data Home Medications Medication Instructions Recorded Confirmed citalopram 20 mg tablet (Celexa) 20 mg PO HS 06/11/21 03/06/23 oxybutynin chloride 10 mg 10 mg PO DAILY 12/05/22 03/06/23 tablet,extended release 24 hr Allergies Allergy/AdvReac Type Severity Reaction Status Date / Time butorphanol AdvReac Intermediate Confusion, Verified 03/06/23 18:35 DIFFICULTY RESPONDING iohexol AdvReac Mild Hives Verified 03/06/23 18:35 [From contrast - CT, X-RAY] shellfish derived AdvReac Mild Hives Verified 03/06/23 18:35 Review of Systems Review of Systems: Pertinent positives per HPI. Patient denies any fever, chills, rash, headache, visual changes, dizziness, cough, runny nose, sore throat, shortness of breath, chest pain, palpitations, nausea, vomiting, diarrhea, constipation, abdominal pain, or any urinary issues. PMFSH Past Medical History Medical History Abdominal cramping Acute diarrhea Anxiety and depression Asthma Blood in stool Cholelithiasis Colon cancer screening Duodenal ulcer Ectopic 03/11/95 01/17/02 Esophageal stricture Gastroparesis GERD (gastroesophageal reflux disease) Miscarriage Periumbilical abdominal tenderness with rebound tenderness Screening mammogram, encounter for Surgical History Surgical History History of colonoscopy History of endometrial ablation History of gynecologic surgery treatment of ectopic x2 History of robot-assisted laparoscopic hysterectomy (06/23/12) RA TLH--fibroids History of suburethral sling procedure (~2010) Hx laparoscopic cholecystectomy 09/16/22 Family History Family History Father Acute myocardial infarction, Onset Age: 46 Heart disease Hypertension Sibling Afib Pacemaker Mother Kidney malignancy Congestive heart failure Heart disease Hypertension Malignant tumor of urinary bladder Primary malignant neoplasm of urethra Breast cancer, Onset Age: 72 triple negative breast cancer Daughter Diabetes mellitus Grandparent Cerebrovascular accident maternal grandmother Social History Social History Smoking status: Never smoker Alcohol intake: never Drinks per week: 0 Substance use: never Substance use type: does not use Living arrangements: alone Additional living arrangements comments: 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 There is no relevant family history pertinent to the patient complaint. Exam Narrative: General: Well-developed, well nourished, in no apparent distress Head: Normocephalic, atraumatic. Cardio: Regular rate and rhythm, s1 and s2 normal, no murmur appreciated. Resp: Clear to auscultation bilaterally, no rhonchi,
[2023-03-06 18:30] VITALS: BP 149/81; PULSE 83; RESP 18; TEMP 36.7; O2SAT 99
== END 2023-03-06 18:38 | disposition home or self-care (01) ==
PROVIDERS: Emergency Provider Nurse Practitioner Family; PCP Internal Medicine
DX: L08.9 Local infection of the skin and subcutaneous tissue, unspecified (principal); J45.909 Unspecified asthma, uncomplicated; K21.9 Gastro-esophageal reflux disease without esophagitis; F41.9 Anxiety disorder, unspecified; F32.A Depression, unspecified; K31.84 Gastroparesis
CPT/HCPCS: 99213; G0463

== ENCOUNTER 2023-06-27 11:30 | Emergency (ER) | payer OTHER, SELFPAY ==
[2023-06-27 11:55] VITALS: BP 121/80; PULSE 100; RESP 18; TEMP 36.7; O2SAT 99
--- NOTE | 2023-06-27 12:26 | ED.SKABFB ---
HPI - Skin/Abscess/Foreign Bdy General Chief complaint: Skin/Abscess/Foreign Body Stated complaint: rash Time Seen by Provider: 06/27/23 12:13 Source: patient and RN notes reviewed Mode of arrival: ambulatory Limitations: no limitations History of Present Illness HPI narrative: Patient presents today complaining of a 4 day history of dry skin and irritation surrounding both of her eyes that has been worsening since onset. States this irritation is very itchy. She initially thought that her contacts were irritating her eyes so she removed them and has been wearing her glasses. She tried some [id number] eyedrops without relief. She has also tried some Benadryl without much relief. She denies any new products in her household, new foods or drinks, new animal or plant exposure. She does not take an CONRAD-inhibitor. She denies shortness of breath, difficulty swallowing, swelling in her lips or tongue, scratchiness in the throat. Related Data Home Medications Medication Instructions Recorded Confirmed citalopram 20 mg tablet (Celexa) 20 mg PO HS 06/11/21 06/27/23 oxybutynin chloride 10 mg 10 mg PO DAILY 12/05/22 06/27/23 tablet,extended release 24 hr Allergies Allergy/AdvReac Type Severity Reaction Status Date / Time butorphanol AdvReac Intermediate Confusion, Verified 06/27/23 12:01 DIFFICULTY RESPONDING iohexol AdvReac Mild Hives Verified 06/27/23 12:01 [From contrast - CT, X-RAY] shellfish derived AdvReac Mild Hives Verified 06/27/23 12:01 Review of Systems Review of Systems: CONSTITUTIONAL: Denies body aches, fever, chills, or sweats. EYES: Denies visual changes, redness, or discharge. ENT: Denies rhinorrhea, congestion, sore throat, or otalgia. CARDIOVASCULAR: Denies chest pain, palpitations, or edema. RESPIRATORY: Denies cough or dyspnea. GASTROINTESTINAL: Denies abdominal pain, nausea, vomiting, or diarrhea. GENITOURINARY: Denies dysuria or hematuria. SKIN: + pruritic rash of the face MUSCULOSKELETAL: Denies back pain, joint pain, or myalgia. NEUROLOGIC: Denies headache, numbness, tingling, or weakness. PSYCH: Denies depression or anxiety. [facility] Past Medical History Medical History Abdominal cramping Acute diarrhea Anxiety and depression Asthma Blood in stool Cholelithiasis Colon cancer screening Duodenal ulcer Ectopic 03/11/95 01/17/02 Esophageal stricture Gastroparesis GERD (gastroesophageal reflux disease) Miscarriage Periumbilical abdominal tenderness with rebound tenderness Screening mammogram, encounter for Surgical History Surgical History History of colonoscopy History of endometrial ablation History of gynecologic surgery treatment of ectopic x2 History of robot-assisted laparoscopic hysterectomy (06/23/12) RA TLH--fibroids History of suburethral sling procedure (~2010) Hx laparoscopic cholecystectomy 09/16/22 Family History Family History Father Acute myocardial infarction, Onset Age: 46 Heart disease Hypertension Sibling Afib Pacemaker Mother Kidney malignancy Congestive heart failure Heart disease Hypertension Malignant tumor of urinary bladder Primary malignant neoplasm of urethra Breast cancer, Onset Age: 72 triple negative breast cancer Daughter Diabetes mellitus Grandparent Cerebrovascular accident maternal grandmother Social History Social History Smoking status: Never smoker Alcohol intake: never Drinks per week: 0 Substance use: never Substance use type: does not use Living arrangements: alone Additional living arrangements comments: Occupation/Education: occupation Additional occupation/education comments: [employer]
[2023-06-27] MEDS: dexAMETHasone SOD PHOS INJ 10 MG/ML 1 ML VIAL IM (12:31)
== END 2023-06-27 12:43 | disposition home or self-care (01) ==
PROVIDERS: Emergency Provider Nurse Practitioner; PCP Internal Medicine
DX: T78.40XA Allergy, unspecified, initial encounter (principal); Z79.899 Other long term (current) drug therapy
CPT/HCPCS: 96372; 99213; G0463; J1100

== ENCOUNTER 2023-08-05 07:33 | Outpatient (CLI) | payer OTHER, SELFPAY ==
--- NOTE | ~2023-08-05 | MR_ITS ---
EXAMINATION: MR brain/brain stem wo/w con DATE: 08/05/2023 08:22 INDICATION: Headache. TECHNIQUE: Magnetic resonance imaging (MRI) of the brain and brainstem was performed without and with 13 mL MultiHance intravenous contrast. COMPARISON: Brain MRI 06/12/2021, head CT 06/13/2021 FINDINGS: There is no intracranial hemorrhage, acute infarction, or abnormal intracranial mass lesion . The ventricles are normal in size. The orbits are normal. The paranasal sinuses are clear. There is a right mastoid effusion. IMPRESSION: 1. Normal brain. Reviewed, dictated and finalized at location A. IMPRESSION: 1. Normal brain.
== END 2023-08-05 07:34 | disposition home or self-care (01) ==
PROVIDERS: PCP Internal Medicine; Visit Provider Internal Medicine
DX: R51.9 Headache, unspecified (principal)
CPT/HCPCS: 70553; A9577

== ENCOUNTER 2023-08-17 08:03 | Outpatient (CLI) | payer OTHER, SELFPAY ==
--- NOTE | 2023-08-17 | EST_ITS ---
Patient Info Name: Leigh Ann Jay Age: 52 years : 1970 Gender: Female Ht: 64 in Wt: 142 lbs BSA: 1.72 m2 HR: 78 bpm BP: 140 / 81 mmHg Heart Rhythm: Sinus Rhythm Exam Date: 08/17/2023 9:56 AM Exam Location: [facility] Patient Status: Outpatient Admit Date: 08/17/2023 Staff Ordering Physician: Morris, Aron MENDOZA Attending Provider: Morris, Aron MENDOZA Exercise Technologist: Sylwia Bro CT Nurse: Jaylyn Don APN Exam Type: CA stress test treadmill w NM Study Info Indications R06.02 - Shortness of breath A nuclear stress test was performed. Summary 1. Exercise capacity fair to good at 6-10 METS[address] 2[address] No abnormal ST/T wave changes diagnostic of ischemia with exercise. 3. Occasional PACs. 4. Please correlate with nuclear medicine images, reported separately. 5. Stress test supervised by Jaylyn Don NP. Stress test interpreted by Morteza Nair MD. Rest HR: 78 bpm Peak HR: 152 bpm Rest Sys BP: 140 mmHg Peak Sys BP: 162 mmHg Max Pred HR: 170 bpm % Max Pred HR: 89 % Target HR: 145 bpm Max RPP: 24,624 bpm*mmHg Target HR Summary: Patient's target heart rate was achieved Termination Reason: Dyspnea Rest Narayanan BP: 81 mmHg Peak Narayanan BP: 76 mmHg Resting ECG Sinus rhythm. Stress ECG No abnormal ST/T wave changes diagnostic of ischemia with exercise. Arrhythmias Occasional PACs. Report Signatures
--- NOTE | ~2023-08-17 | NM_ITS ---
EXAMINATION: NM stress w perf spect multi DATE: 08/17/2023 10:41 INDICATION: Dyspnea on exertion TECHNIQUE: Rest images were obtained following intravenous administration of 10.7 mCi Tc99m tetrofosm in (Myoview). The patient performed an exercise activity. At peak exercise, 31.7 mCi Tc99m tetrofosmi n (Myoview) was administered intravenously, and stress images were obtained. Data was reconstructed i nto short axis and horizontal and vertical long axis SPECT images. Gated SPECT images were also obtai shania. COMPARISON: None. FINDINGS: There is normal left ventricular perfusion without definite evidence of reversible or fixed perfusion abnormality to suggest ischemia or infarction. There is normal left ventricular chamber size, wall motion and ejection fraction. Left ventricular ejection fraction measures 65%. IMPRESSION: 1. Normal myocardial perfusion during stress. 2. Left ventricular ejection fraction measuring 65%. Reviewed, dictated and finalized at location B.
== END 2023-08-17 08:04 | disposition home or self-care (01) ==
LOC: ANHCARD 08:09
PROVIDERS: PCP Internal Medicine; Visit Provider Internal Medicine
DX: R06.09 Other forms of dyspnea (principal); R06.02 Shortness of breath
CPT/HCPCS: 78452; 93017; A9502

== ENCOUNTER 2023-08-20 12:03 | Emergency (ER) | payer OTHER, SELFPAY ==
--- NOTE | ~2023-08-20 | XR_ITS ---
EXAM: XR hand LT min 3V DATE: 08/20/2023 12:34 HISTORY: LT 2nd-5th pip pain/abrasions, 5th mcp. fell this morning . COMPARISON: None available. FINDINGS: Normal mineralization. No fracture or dislocation. No lytic or blastic lesion. Joint space s are maintained. No erosion or periosteal change. Soft tissues within normal limits. IMPRESSION: No acute osseous finding in the left hand. Reviewed, dictated and finalized at location K.
--- NOTE | 2023-08-20 12:08 | ED.UPPEXIN ---
HPI - Extremity Injury (Upper) General Chief Complaint: Extremity Injury, Upper Stated Complaint: fall/ lt hand injury Time Seen by Provider: 08/20/23 12:07 Source: patient Mode of arrival: ambulatory Limitations: no limitations History of Present Illness HPI narrative: Patient is a 52-year-old female that presents with left hand pain after being pulled off porch skipping 2 steps by dog this morning. Patient did hit her head and does report headache but no vision changes or LOC. patient has not had any nausea, vomiting. Patient still able to move hand with mild pain. Reports bruising and abrasions knuckles. Patient took pain medication just prior to arrival and states it is starting to work already. Related Data Home Medications Medication Instructions Recorded Confirmed citalopram 20 mg tablet (Celexa) 20 mg PO HS 06/11/21 08/20/23 oxybutynin chloride 10 mg 10 mg PO DAILY 12/05/22 08/20/23 tablet,extended release 24 hr ondansetron HCl 4 mg tablet 4 mg PO Q8H 08/17/23 08/20/23 Allergies Allergy/AdvReac Type Severity Reaction Status Date / Time iohexol Allergy Mild Hives Verified 08/20/23 12:18 [From contrast - CT, X-RAY] shellfish derived Allergy Mild Hives Verified 08/20/23 12:18 butorphanol AdvReac Intermediate Confusion, Verified 08/20/23 12:18 DIFFICULTY RESPONDING Review of Systems Review of Systems: All systems reviewed & are unremarkable except as noted in HPI and below Constitutional: Constitutional: Denies body ache(s), Denies chills, Denies fatigue, Denies fever(s), Reports headache(s), Denies malaise and Denies weakness Eyes: Eyes: Denies blurry vision, Denies irritation and Denies loss of vision ENT: Denies otalgia, Denies headache(s), Denies nasal discharge, Denies sinus pain and Denies sore throat Cardiovascular: Cardiovascular: Denies chest pain, Denies irregular heart rhythm and Denies dyspnea Respiratory: Respiratory: Denies dyspnea Gastrointestinal: Gastrointestinal: Denies abdominal pain, Denies melena, Denies hematochezia, Denies diarrhea, Denies nausea and Denies vomiting Musculoskeletal: Musculoskeletal: Denies back pain, Denies myalgias and Reports arthralgias Integumentary/Breasts: Skin/Breast: Denies pruritus and Denies rash Neurologic: Denies headache(s), Denies loss of vision and Denies weakness Psychiatric: Psychiatric: Reports no additional psychiatric complaints Endocrine: Endocrine: Denies fatigue [facility] Past Medical History Medical History Abdominal cramping Acute diarrhea Anxiety and depression Asthma Blood in stool Cholelithiasis Colon cancer screening Duodenal ulcer Ectopic 03/11/95 01/17/02 Esophageal stricture Gastroparesis GERD (gastroesophageal reflux disease) Miscarriage Periumbilical abdominal tenderness with rebound tenderness Screening mammogram, encounter for Surgical History Surgical History History of colonoscopy (11/26/21) History of endometrial ablation History of gynecologic surgery treatment of ectopic x2 History of robot-assisted laparoscopic hysterectomy (06/23/12) RA TLH--fibroids History of suburethral sling procedure (~2010) Hx laparoscopic cholecystectomy 09/16/22 Family History Family History Father Acute myocardial infarction, Onset Age: 46 Heart disease Hypertension Sibling Afib Pacemaker Mother Kidney malignancy Congestive heart failure Heart disease Hypertension Malignant tumor of urinary bladder Primary malignant neoplasm of urethra Breast cancer, Onset Age: 72 triple negative breast cancer Daughter Diabetes mellitus Grandparent Cerebrovascular accident maternal grandmother Social History Social History Smoking status:
[2023-08-20 12:17] VITALS: BP 126/87; PULSE 86; RESP 18; TEMP 36.3; O2SAT 99
[2023-08-20 12:19] VITALS: BP 126/87; PULSE 86; RESP 18; TEMP 36.3; O2SAT 99
== END 2023-08-20 13:12 | disposition home or self-care (01) ==
PROVIDERS: Emergency Provider Nurse Practitioner Family; PCP Internal Medicine
DX: S60.222A Contusion of left hand, initial encounter (principal); W17.89XA Other fall from one level to another, initial encounter; J45.909 Unspecified asthma, uncomplicated; K21.9 Gastro-esophageal reflux disease without esophagitis; K31.84 Gastroparesis; F41.9 Anxiety disorder, unspecified; F32.A Depression, unspecified
CPT/HCPCS: 73130; 99213; G0463

== ENCOUNTER 2023-11-24 01:07 | Day surgery (SDC) | payer OTHER, SELFPAY ==
[2023-11-16 09:52] VITALS: BMI 23.8
[2023-11-24 12:43] VITALS: BP 131/87; PULSE 100; RESP 16; TEMP 36.6; O2SAT 99
[2023-11-24] MEDS: LACTATED RINGERS 1,000 ML 150 ML IV CONT (12:51)
--- NOTE | 2023-11-24 13:55 | WPDANESEPPF ---
Anes - Initial Pre Proc Eval Procedure: Operation Date: 11/24/23 13:30 Proposed Procedures p Colonoscopy - Pardeep Camarena MD Date/Time: 11/24/23 13:55 Surgeon: Pardeep Camarena MD Pre Op Diagnosis: RLQ pain, rectal polyp, gastroenteritis/colitis Patient Data Age: 53 Gender: F Height: 1.63 m Weight: 56.3 kg Last Vital Signs Temp 97.9 F 11/24/23 12:43 Pulse 100 11/24/23 12:43 Resp 16 11/24/23 12:43 BP 131/87 11/24/23 12:43 Pulse Ox 99 11/24/23 12:43 O2 Del Method Room Air 11/24/23 12:43 Allergies Allergy/AdvReac Type Severity Reaction Status Date / Time iohexol Allergy Mild Hives Verified 11/24/23 12:42 [From contrast - CT, X-RAY] shellfish derived Allergy Mild Hives Verified 11/24/23 12:42 butorphanol AdvReac Intermediate Confusion, Verified 11/24/23 12:42 DIFFICULTY RESPONDING Home Medications Medication Instructions Recorded Confirmed Type citalopram 20 mg tablet (Celexa) 20 mg PO HS 06/11/21 11/16/23 History atorvastatin 40 mg tablet 40 mg PO DAILY #30 tabs 06/13/21 11/16/23 Rx omeprazole 40 mg capsule,delayed 40 mg PO BID 1 month #60 caps 11/26/21 11/16/23 Rx release oxybutynin chloride 10 mg 10 mg PO DAILY 12/05/22 11/16/23 History tablet,extended release 24 hr ondansetron HCl 4 mg tablet 4 mg PO Q8H PRN Nausea 08/17/23 11/16/23 History budesonide 3 mg 3 mg PO DAILY #180 ea 11/04/23 11/16/23 Rx capsule,delayed,extended release colestipol 1 gram tablet See Rx Instructions .Route 11/05/23 11/16/23 Rx .COMPLEX #180 tabs amitriptyline 25 mg tablet 25 mg PO HS 11/16/23 11/16/23 History Patient hx anesthesia problems: none Family hx anesthesia problems: none Results Review: All pre-operative results and documents have been reviewed as part of the pre-operative evaluation. PMFSH Past Medical History Medical History Abdominal cramping Acute diarrhea Anxiety and depression Asthma Blood in stool Cholelithiasis Colon cancer screening Duodenal ulcer Ectopic 03/11/95 01/17/02 Esophageal stricture Gastroparesis GERD (gastroesophageal reflux disease) Miscarriage Periumbilical abdominal tenderness with rebound tenderness Screening mammogram, encounter for Surgical History Surgical History History of colonoscopy (11/26/21) History of endometrial ablation History of gynecologic surgery treatment of ectopic x2 History of robot-assisted laparoscopic hysterectomy (06/23/12) RA TLH--fibroids History of suburethral sling procedure (~2010) Hx laparoscopic cholecystectomy 09/16/22 Family History Family History Father Acute myocardial infarction, Onset Age: 46 Heart disease Hypertension Sibling Afib Pacemaker Mother Kidney malignancy Congestive heart failure Heart disease Hypertension Malignant tumor of urinary bladder Primary malignant neoplasm of urethra Breast cancer, Onset Age: 72 triple negative breast cancer Daughter Diabetes mellitus Grandparent Cerebrovascular accident maternal grandmother Social History Social History Smoking status: Never smoker Second hand tobacco smoke exposure: Yes (as child) Alcohol intake: never Drinks per week: 0 Substance use: never Substance use type: does not use Do You Feel Safe in your Home?: Yes Living arrangements: with family Additional living arrangements comments: 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
--- NOTE | 2023-11-24 14:02 | WPDHPUPDATE1 ---
History and Physical Update Update Date/Time: 11/24/23 14:02 History and Physical has been reviewed, including an updated exam of the patient. There are NO changes in the patient's condition. Risks, benefits, and alternatives have been discussed and questions answered. Patient agrees to proceed with procedure.
[2023-11-24 14:18] VITALS: BP 131/69; PULSE 85; RESP 19; O2SAT 100
[2023-11-24 14:28] VITALS: BP 123/83; PULSE 82; RESP 20; O2SAT 100
[2023-11-24 14:38] VITALS: BP 127/90; PULSE 76; RESP 19; O2SAT 100
--- NOTE | 2023-11-24 14:39 | SUR.PHASEII ---
Discharge delay due to ride conflict.
== END 2023-11-24 14:50 | disposition home or self-care (01) ==
PROVIDERS: PCP Internal Medicine; Referring Provider Nurse Practitioner; Visit Provider Internal Medicine Gastroenterology
PROC: 0DJD8ZZ Inspection of Lower Intestinal Tract, Via Natural or Artificial Opening Endoscopic (ICD-10-PCS; CPT 45378; principal; 2023-11-24 13:30)
DX: R19.7 Diarrhea, unspecified (principal); K64.8 Other hemorrhoids; R59.9 Enlarged lymph nodes, unspecified; F41.8 Other specified anxiety disorders; J45.909 Unspecified asthma, uncomplicated; K21.9 Gastro-esophageal reflux disease without esophagitis; Z98.890 Other specified postprocedural states; Z96.0 Presence of urogenital implants; Z90.49 Acquired absence of other specified parts of digestive tract; Z80.51 Family history of malignant neoplasm of kidney; Z80.52 Family history of malignant neoplasm of bladder; Z80.59 Family history of malignant neoplasm of other urinary tract organ; Z80.3 Family history of malignant neoplasm of breast; Z82.49 Family history of ischemic heart disease and other diseases of the circulatory system
CPT/HCPCS: 45380; 88305; J2704; J7120

== ENCOUNTER 2024-04-05 11:14 | Outpatient (CLI) | payer OTHER, SELFPAY ==
--- NOTE | ~2024-04-05 | XR_ITS ---
EXAMINATION: XR chest 2V 04/05/2024 11:29 INDICATION: Dyspnea with exertion. Cough. Congestion. PROCEDURE: 2 view chest COMPARISON: 06/11/2021 FINDINGS: The lungs are clear. The cardiomediastinal silhouette is within normal limits. There are no pleural effusions. There is no pneumothorax suspected. IMPRESSION: 1: NO ACUTE CARDIOPULMONARY DISEASE. Reviewed, dictated and finalized at location B. DEVELOPER
[2024-04-05 13:17] LABS: Basophils Percent Auto 0.4 % (0.2-1.2); Eosinophils Absolute Auto 0.3 K/mm3 (0-0.3); Eosinophils Percent Auto 3.5 % (0-4.4); Hematocrit 39.7 % (37.0-47.0); Hemoglobin 13.3 g/dL (12.0-15.0); Immature Granulocyte Absolute 0.01 K/mm3 (0.00-0.031); Immature Granulocyte Percent A 0.1 % (0-0.5); Lymphocytes Percent Auto 29.8 % (18.3-44.2); Mean Corpuscular HGB Conc 33.5 g/dl (32-36); Mean Corpuscular Hemoglobin 30.9 pg (26-34); Mean Corpuscular Volume 92.3 fl (80-100); Mean Platelet Volume 11.5 fl (7.4-10.4); Monocytes Absolute Auto 0.4 K/mm3 (0.1-0.6); Monocytes Percent Auto 5.1 % (2.6-8.5); Neutrophils Absolute Auto 4.5 K/mm3 (1.3-6.7); Neutrophils Percent Auto 61.1 % (45.5-73.1); Platelet Count Result 318 k/mm3 (150-375); Red Cell Distribution Width 12.4 % (11.5-14.5); White Blood Count 7.4 K/mm3 (4.5-10.0)
[2024-04-05 13:20] LABS: Alanine Aminotransferase 20 U/L (6-35); Albumin Level 4.5 g/dL (3.5-5.1); Alkaline Phosphatase 81 U/L (38-126); Anion Gap 6 mmol/L (4-12); Aspartate Amino Transferase 25 U/L (14-36); Bilirubin,Total 0.6 mg/dL (0.2-1.3); Blood Urea Nitrogen 7 mg/dL (7-17); Carbon Dioxide 31 mmol/L (22-30); Chloride 101 mmol/L (98-107); Cholesterol 201 mg/dL (0-200); Estimated Glomerular Filt Rate > 60; Glucose 98 mg/dL (65-110); HDL Direct 50 mg/dL; Potassium 3.7 mmol/L (3.4-5.0); Sodium 138 mmol/L (137-145); Triglycerides 113 mg/dL (<150)
[2024-04-05 13:31] LABS: LDL Cholesterol Direct 107 mg/dL
== END 2024-04-05 11:15 | disposition home or self-care (01) ==
PROVIDERS: PCP Internal Medicine; Visit Provider Internal Medicine
DX: R06.09 Other forms of dyspnea (principal); Z13.6 Encounter for screening for cardiovascular disorders
CPT/HCPCS: 36415; 71046; 80053; 80061; 85025

== ENCOUNTER 2025-03-16 16:46 | Outpatient (CLI) | payer BC, SELFPAY ==
--- OUTSIDE RECORDS SUMMARY | 2025-03-16 16:50 | XMS_ITS | Encounter Summary ---
Author Organization [facility] Address [facility] [place] [address] Care Team Providers Care Rubber Cutter And Shape Carver Name Role Phone Medardo Ramsey MD Primary Care Provider [phone] Maryanne Serrano APNP Unavailable [phone] Encounter Details Date Type Department Care Team (Late st Contact Info) Description 04/27/[address] [facility] Patient Accounts [address] [place] [address] [place], [facility] Provider Monthly Credit Card Payment Social History Tobacco Use Types Packs/Day Years Used Date Smoking Tobacco: Never Smokeless Tobacco: Never Alcohol Use Standard Drinks/Week Comments Not Currently 5 (1 standard drink = 0.6 oz pur e alcohol) Maybe once a month PHQ-2 Answer Date Recorded PHQ-2 Score - If the patient scores above 3, please move on to questions 3-9 0 11/21/2021 Comments No Sex and Gender Information Value Date Recorded Sex Assigned at Not on file Legal Sex Female 11:40 PM CDT Gender Identity Not on file Sexual Orientation Not on file COVID-19 Exposure Response Date Recorded In the last 10 days, have yo u been in contact with someone who was confirmed or suspected to have Coronavirus/COVID-19? No / Unsure 04/14/2022 11:48 AM CYLINDER MACHINE OPERATOR PULP DRIER documented as of this encounter Plan of Treatment Not on file documented as of this encounter Visit Diagnoses Not on filedocumented in this encounter Additional Health Concerns Assessment Noted Time PHQ-9 Depression Total Score: 0 04/18/20 21 10:44 AM CYLINDER MACHINE OPERATOR PULP DRIER documented as of this encounter Care Teams Rubber Cutter And Shape Carver Relationship Specialty Start Date End Date Medardo Ramsey MD [address] [place] [address] PCP - General 04/26/14 Maryanne Serrano APNP [address] [place] [address] Nurse Practitioner NURSE PRACTITIONER 04/21/23 documented as of this encounter
--- OUTSIDE RECORDS SUMMARY | 2025-03-16 16:50 | XMS_ITS | Encounter Summary ---
Author Organization [facility] Address [facility] [place] [address] Care Team Providers Care Brass Sorter Name Role Phone Medardo Ramsey MD Primary Care Provider [phone] Maryanne Serrano APNP Unavailable [phone] Encounter Details Date Type Department Care Team (Late st Contact Info) Description 12/09/2020 [employer] Message Enc [facility] Medical Group Family & Internal Medicine [address] [address] Medardo Ramsey MD [facility] [place] [address] RE: FW: Question Social History Tobacco Use Types Packs/Day Years Used Date Smoking Tobacco: Never Smokeless Tobacco: Never Alcohol Use Standard Drinks/Week Comments Yes 5 (1 standard drink = 0.6 oz pur e alcohol) Maybe once a month PHQ-2 Answer Date Recorded PHQ-2 Score - If the patient scores above 3, please move on to questions 3-9 0 06/12/2020 Comments No Sex and Gender Information Value Date Recorded Sex Assigned at Not on file Legal Sex Female 11:40 PM CDT Gender Identity Not on file Sexual Orientation Not on file documented as of this encounter Plan of Treatment Not on file documented as of this encounter Visit Diagnoses Not on filedocumented in this encounter Care Teams Brass Sorter Relationship Specialty Start Date End Date Medardo Ramsey MD [address] [place] [address] PCP - General 04/26/14 Maryanne Serrano APNP [address] [place] [address] Nurse Practitioner NURSE PRACTITIONER 04/21/23 documented as of this encounter
--- OUTSIDE RECORDS SUMMARY | 2025-03-16 16:50 | XMS_ITS | Encounter Summary ---
Author Organization [facility] Address [address] [place] [address] Care Team Providers Care Mud Car Worker Name Role Phone Medardo Ramsey MD Primary Care Provider [phone] Maryanne Serrano APNP Unavailable [phone] Encounter Details Date Type Department Care Team (Late st Contact Info) Description 03/09/2021 [employer] Message Enc [facility] Medical Group Family & Internal Medicine [facility] [address] [place] [address] Matt Veronica DO [address] [place] [address] Follow Up/Update Social History Tobacco Use Types Packs/Day Years [...] Exposure Response Date Recorded In the last month, have you been in contact with someone who was confirmed or suspected to have Coronavirus / COVID-19? No / Unsure 03/11/2021 10:32 AM CDT documented as of this encounter Functional Status * Calculated C-SSRS Risk Score (Lifetime/Recent) Answer Date of Assessment Author Status No Risk Indicated 03/11/2021 11:48 AM Stephanie Santana RN Active * [place] Suicide Severity Rating Scale (Screener/Recent Self-Report) Question Answer Date of Assessment Author Status 1. Wish to be (Past 1 Month) No 03/11/2021 11:48 AM Angela Santana RN Acti ve 2. Non-Specific Active Suicidal Thoughts (Past 1 Month) No 03/11/2021 11:48 AM Angela Santana, RN Acti ve 6. Suicidal Behavior (Lifetime) No 03/11/2021 11:48 AM Angela Santana RN Acti ve documented as of this encounter Plan of Treatment Not on file documented as of this encounter Visit Diagnoses Not on filedocumented in this encounter Care Teams Mud Car Worker Relationship Specialty Start Date End Date Medardo Ramsey MD [address] [place] [address] PCP - General 04/26/14 Maryanne Serrano APNP [address] [place] [address] Nurse Practitioner NURSE PRACTITIONER 04/21/23 documented as of this encounter
--- OUTSIDE RECORDS SUMMARY | 2025-03-16 16:50 | XMS_ITS | Encounter Summary ---
Author Organization [facility] Address [facility] [place] [address] Care Team Providers Care Marketing Programs Manager Name Role Phone Medardo Ramsey MD Primary Care Provider [phone] Maryanne Serrano APNP Unavailable [phone] Encounter Details Date Type Department Care Team (Late st Contact Info) Description 11/19/2021 [employer] [facility] Patient Accounts [address] [place] [address] [place], [facility] Provider Auto Pay Payment Plan Social History Tobacco Use Types Packs/Day Years [...] suspected to have Coronavirus/COVID-19? No / Unsure 11/21/2021 8:56 AM CDT documented as of this encounter Plan of Treatment Not on file documented as of this encounter Visit Diagnoses Not on filedocumented in this encounter Additional Health Concerns Assessment Noted Time PHQ-9 Depression Total Score: 0 04/18/20 21 10:44 AM SENSITIZED PAPER TESTER documented as of this encounter Care Teams Marketing Programs Manager Relationship Specialty Start Date End Date Medardo Ramsey MD [address] [place] [address] PCP - General 04/26/14 Maryanne Serrano APNP [address] [place] [address] Nurse Practitioner NURSE PRACTITIONER 04/21/23 documented as of this encounter
--- OUTSIDE RECORDS SUMMARY | 2025-03-16 16:50 | XMS_ITS | Clinical Summary ---
Author Organization [facility] Address [facility] [place] [address] Care Team Providers Care Flumer Name Role Phone Medardo Ramsey MD Primary Care Provider [phone] Maryanne Serrano APNP Unavailable Allergies Active Allergy Reactions Criticality Noted Date Comments Butorphanol Other (see comment) High 06/11/2021 Iodine Hives,Rash,Itching,Redness Medium Iohexol Rash,Hives Low 06/11/2021 Shellfish Allergy Hives Low 12/05/2022 Medications estradiol (ESTRACE) 0.5 MG tablet Take 1 tablet (0.5 mg total) by mouth daily. Active Active Problems Problem Noted Date Diagnosed Date Allergic reaction 11/03/2024 Skin infection 11/03/2024 Arthralgia 08/01/2023 Stricture of esophagus 08/01/2023 Numbness of face 08/01/2023 Neck pain 08/01/2023 Dyspnea on exertion 08/01/2023 Neck pain 08/01/2023 Cervical radiculopathy 02/22/2023 Lumbar pain 02/22/2023 Complex renal cyst 11/23/2021 Overactive bladder 11/23/2021 History of gross hematuria 11/23/2021 Asthma 08/26/2021 Occlusion and stenosis of bilateral carotid christian jennifer 07/03/2021 Left bundle branch block (LBBB) 07/03/2021 Vitamin D deficiency 01/03/2020 Migraine 12/27/2017 Resolved Problems Problem Noted Date Diagnosed Date Resolved Date Chest pain 04/04/2014 01/13/2022 Heart palpitations 04/04/2014 Family History Medical History Relation Comments Heart Disease Brother Hypertension Brother Diabetes Daughter Early Father Heart Attack 46 Heart Disease Father Hyperlipidemia Maternal Grandmother Stroke Maternal Grandmother Breast Cancer Mother COPD Mother Cancer Mother Kidney Cancer Heart Disease Mother Hypertension Mother Kidney Cancer Mother with Mets Stroke Mother Hypertension Sister Migraines/Headaches Sister Relation Status Comments Brother Daughter Father Maternal Grandmother Mother Sister Social History Tobacco Use Types Packs/Day Years Used Date Smoking Tobacco: Never Smokeless Tobacco: Never Tobacco Cessation:Counseling Given: No Alcohol Use Standard Drinks/Week Comments Not Currently 0 (1 standard drink = 0.6 oz pur e alcohol) Maybe once a month PHQ-2 Answer Date Recorded Patient Health Questionnaire-2 Score 0 05/20/2023 Comments No Sex and Gender Information Value Date Recorded Sex Assigned at Not on file Legal Sex Female 11:40 PM CDT Gender Identity Not on file Sexual Orientation Not on file Last Filed Vital Signs Vital Sign Reading Time Taken Comments Blood Pressure 139/87 11/03/2024 7:27 AM CDT Pulse 62 11/03/2024 7:27 AM CDT Temperature 36.5 C (97.7 F) 11/03/2024 7:27 AM CDT Respiratory Rate 18 11/03/2024 7:27 AM CDT Oxygen Saturation 96% 11/03/2024 7:27 AM CDT Inhaled Oxygen Concentration - - Weight 58.1 kg (128 lb) 11/03/2024 7:27 AM CDT Height 162.6 cm (5' 4) 11/03/2024 7:27 AM CDT Body Mass Index 21.97 11/03/2024 7:27 AM CDT Plan of Treatment Health Maintenance Due Date Last Done Comments Colorectal Cancer Screening Colonoscopy (10 Years) 1972 DTaP, Tdap and Td Vaccines ( 1 - Tdap) 09/12/1991 Hepatitis B Vaccines (1 of 3 - 19+ 3-dose series) 09/12/1991 Pneumococcal Vaccine: 50+ Years (1 of 2 - PCV) 09/12/1991 Zoster Vaccines (1 of 2) 2022 Mammogram Screening 09/23/2023 09/22/2021, 04/21/2019 PHQ-2 (Physician [place]) 05/10/2024 05/20/2023 Annual Physical 05/20/2024 05/20/2023, 08/22/2020, 12/20/2019 COVID-19 Vaccine (3 - 2024-2 6 season) 2025 11/04/2020, 10/14/2020 Influenza Adult (#1) 2025 Hepatitis C Completed 04/14/2022 Hepatitis A Vaccines Aged Out No long er eligible based on patient's age to complete this topic Meningococcal B Vaccine Aged Out No l onger eligible based on patient's age to complete this topic Meningococcal Vaccine Aged Out No denita rachael eligible based on patient's age to complete this topic RSV Immunizations Under 20 Months Aged Out No longer eligible b ased on patient's age to complete this topic Procedures Procedure Name Priority Date/Time Associated Diagnosis Comments HEPATITIS C ANTIBODY Routine 04/14/2022 2:37 PM WAGON DRIVER Unprotected sex MAMMOGRAM GENERIC (SCAN ORDER) 09/22/2021 from Last 3 Months or Most Recently Relevant to Health Maintenance Results * HEPATITIS C ANTIBODY ([facility] ONLY) (04/14/2022 2:37 PM WAGON DRIVER) HEPATITIS C AB NON-REACTI VE NON-REACT TAYLOR 04/15/2022 1:46 PM WAGON DRIVER [facility] Comment: ANTIBODIES TO HCV NOT DETECTED. DOES NOT EXCLUDE THE POSSIBILITY OF EXPOSURE TO HCV. 04/14/2022 2:37 PM WAGON DRIVER us [facility] Final Resul t [facility] [address] [place] [address], [id number] * MAMMOGRAM GENERIC (09/22/2021) Anatomical Region Laterality Modality Other 09/22/2021 Narrative 09/22/2021 Ordered by an unspecified provider. us Documents Scanned SCANNING Final Result from Last 3 Months or Most Recently Relevant to Health [place] [address] [facility] Advance Directives * Full Code (Latest Code Status on File) Date Activated Date Inactivated Comments 12/27/2017 1:30 PM 12/28/2017 8:06 PM Care Teams Flumer Relationship Specialty Start Date End Date Medardo Ramsey MD [address] [place] [address] PCP - General 04/26/14 Maryanne Serrano APNP [address] [place] [address] Nurse Practitioner NURSE PRACTITIONER 04/21/23
--- OUTSIDE RECORDS SUMMARY | 2025-03-16 16:50 | XMS_ITS | Clinical Summary ---
Author Organization [facility] [employer] [facility] Address [address] [facility] [place] [address] Care Team Providers Care Pie Cutter Name Role Phone Marie Lambert MD Primary Care Provider [phone] [facility] [employer] [facility],non-owned Affiliates and Associated Physician Practices is amultiple site organization consisting of ambulatory clinics and hospital sitesin [place], [place], [place] and [place]. This disclosure is being madepursuant to the Care Everywhere program and may not contain all information available regarding this patient. Last updated 18.[facility] Allergies Active Allergy Reactions Criticality Noted Date Comments Contrast-Iodinated Agents Fo r Ct/Other Shortness of Breath High 09/02/2023 Medications * Be aware that medications may not be up to date on this document. Alwaysverify current medications with the patient. oxyBUTYnin (Ditropan) 5 MG tablet Take 1 (one) tablet by mouth once daily Active atorvastatin (Lipitor) 80 MG tablet Take 1 (one) tablet by mouth at bedtime Active citalopram (CeleXA) 20 MG tablet Take 1 (one) tablet by mouth once daily Active ondansetron (Zofran) 4 MG tablet Take 1 (one) tablet by mouth every 6 hours as needed for Nausea/Vomiti ng Active rizatriptan, disintegrating, (Maxalt-MOBILE TESTER) 10 MG tabletIndication s:Migraine with aura and without status migrainosus, not intractable Take 1 (one) tablet by mouth daily as needed - may repeat one time for Migraine No more than 30 mg in a 24 hour period. 9 tablet 5 Active amitriptyline (Elavil) 10 MG tablet Take 1 (one) tablet by mouth at bedtime 90 tablet Active Social History Tobacco Use Types Packs/Day Years Used Date Smoking Tobacco: Never Assessed Comments Unknown Sex and Gender Information Value Date Recorded Sex Assigned at Not on file Legal Sex Female 11:03 AM CDT Gender Identity Not on file Sexual Orientation Not on file Last Filed Vital Signs Vital Sign Reading Time Taken Comments Blood Pressure 128/90 09/02/2023 9:47 AM CDT Pulse 89 09/02/2023 9:47 AM CDT Temperature 37 C (98.6 F) 09/02/2023 9:47 AM CDT Respiratory Rate - - Oxygen Saturation - - Inhaled Oxygen Concentration - - Weight 63.5 kg (140 lb) 09/02/2023 9:47 AM CDT Height 162.6 cm (5' 4) 09/02/2023 9:47 AM CDT Body Mass Index 24.03 09/02/2023 9:47 AM CDT Plan of Treatment Health Maintenance Due Date Last Done Comments COLOGUARD (AGES 45-75) - COL ON CA SCREENING 1972 COLON MONITORING 1972 COLONOSCOPY - COLON CA SCREENING 1972 CT COLONOGRAPHY - COLON CA SCREENING 1972 Colorectal Cancer Screening 1972 FIT - COLON CA SCREENING 1972 FLEX SIG - COLON CA SCREENING 1972 HIV SCREENING 09/12/1987 DTAP/TDAP/TD VACCINES (1 - Tdap) 09/12/1991 HEPATITIS B VACCINE (1 of 3 - 19+ 3-dose series) 09/12/1991 PAP SMEAR 1993 PNEUMOCOCCAL VACCINE 50+ (1 of 1 - PCV) 2022 ZOSTER VACCINE (1 of 2) 2022 MAMMOGRAM 09/23/2023 09/22/2021, 04/21/2019 DEPRESSION SCREENING 05/10/2024 COVID-19 VACCINE (1 - 2023-2 5 season) 2025 INFLUENZA VACCINE (#1) 2025 HEPATITIS C SCREENING Completed 04/14/2022 HIB VACCINE Aged Out No longer eligi ble based on patient's age to complete this topic HPV VACCINE Aged Out No longer eligi ble based on patient's age to complete this topic MENINGOCOCCAL (Group B) VACCINE SHARED DECISION-MAKING Aged Out No longer eligible based on patient's age to complete this topic MENINGOCOCCAL GROUPS A/C/Y/W VACCINE Aged Out No longer eligible b ased on patient's age to complete this topic [place] [address] [place] [address] HEALTH CARE * Guarantor: LEIGH ANN TSANG Account Type Relation to Patient Date of Phone Billing Address Personal/Family [address] [place] [address] [facility] SELF PAY NO INSURANCE Member Subscriber Plan / Payer (Ef fective for All Dates) Name:Leigh Ann Tsang Member ID:Not on file Relation to Subscriber:Not on file Name:LEIGH ANN TSANG Subscriber ID:Not on file Address: [address] [place] [address] Payer ID:Not on file Group ID:Not on file Type:Self Pay Address: [place], [place] * Guarantor: LEIGH ANN TSANG Account Type Relation to Patient Date of Phone Billing Address Personal/Family [address] [place] [address] [facility] [facility] [facility] SELF PAY NO INSURANCE Member Subscriber Plan / Payer (Ef fective for All Dates) Name:Leigh Ann Tsang Member ID:Not on file Relation to Subscriber:Not on file Name:LEIGH ANN TSANG Subscriber ID:Not on file Address: [place] [address] Payer ID:Not on file Group ID:Not on file Type:Self Pay Address: [place], [place] * Guarantor: LEIGH ANN TSANG Account Type Relation to Patient Date of Phone Billing Address Personal/Family [address] [place] [address] [employer] SELF PA[employer] NO INSURANCE Member Subscriber Plan / Payer (Ef fective for All Dates) Name:Leigh Ann Tsang Member ID:Not on file Relation to Subscriber:Not on file Name:LEIGH ANN TSANG Subscriber ID:Not on file Address: [address] [place] [address] Payer ID:Not on file Group ID:Not on file Type:Self Pay Address: [place], [place] Care Teams Pie Cutter Relationship Specialty Start Date End Date Marie Lambert MD [address] [place] [address] PCP - General 11/27/21
--- OUTSIDE RECORDS SUMMARY | 2025-03-16 16:50 | XMS_ITS | Encounter Summary ---
Author Organization [facility] Address [address] [place] [address] Care Team Providers Care Drop Wire Aligner Name Role Phone Medardo Ramsey MD Primary Care Provider [phone] Maryanne Serrano Unavailable [phone] Encounter Details Date Type Department Care Team (Late st Contact Info) Description 11/04/2022 [employer] Message [facility] [address] [place] [address] [employer], [facility] Provider Air Quality Message Social History Tobacco Use Types Packs/Day Years Used Date Smoking Tobacco: Never Smokeless Tobacco: Never Alcohol Use Standard Drinks/Week Comments Not Currently 5 (1 standard drink = 0.6 oz pur e alcohol) Maybe once a month PHQ-2 Answer Date Recorded Patient Health Questionnaire-2 Score 0 06/24/2022 Comments No Sex and Gender Information Value [...] Total Score: 0 04/18/20 21 10:44 AM GEOTECHNICAL FIELD TECHNICIAN documented as of this encounter Care Teams Drop Wire Aligner Relationship Specialty Start Date End Date Medardo Ramsey MD [address] [place] [address] PCP - General 04/26/14 Maryanne Serrano APNP [address] [place] [address] Nurse Practitioner NURSE PRACTITIONER 04/21/23 documented as of this encounter
--- OUTSIDE RECORDS SUMMARY | 2025-03-16 16:50 | XMS_ITS | Data Portability ---
Author Organization [facility] [place] Address [address] [place] [address] Care Team Providers Care Negative Checker Name Role Phone MILLER CACERES Primary Care Provider Unavailabl e Assessment Encounter Date Assessment Date Assessment LastModified by Organization Details LastModified Time 08/23/2023 08/23/2023 MRI was denied b y the insurance company. She has an appointment with neurology have encouraged her to keep that she will See me back in 3 to 4 months. As stated hypercoagulable workup negative and that was reviewed with the patient results were not here but she pulled them up on her [employer] via her cell phone for my inspection. [email or web address] Not available 08/23/2023 22:12:41 11/29/2023 11/29/2023 continue current therapy consider Nurtec for her migraine equivalent low-fat diet healthy lifestyle care instructions follow up 4 months [email or web address] Not available 11/29/2023 22:50:52 03/27/2024 03/27/2024 we will continue current therapy blood work has been ordered we will again try to get records about this indeterminate renal mass follow up with me in 4 months [email or web address] Not available 04/09/2024 21:18:26 04/05/2024 04/05/2024 Quinton Hernandez. Follow up if not improved [email or web address] Not available 04/08/2024 13:50:33 11/06/2024 11/06/2024 Finish treatment for UTI start her urinary incontinence treatment with oxybutynin she has been on that before dyslipidemia check labs follow up with me in 6 months headache spells appear stable Not available 11/06/2024 13:44:37 Plan of Treatment Reminders Order Date Submit Date Provider Last Modified By Organization Details Last Modified Time Details Appointments ANY 15 2024 09:30A Melissa Caceres MD Not available Not available Not available Lab lipid panel, serum 2024 025 [facility] Outpatient Registration Lab/Ekg, [facility] RT [address] [place] [address], [phone], 03/14/2025 10:38:13 CMP, serum or plasma 2024 025 [facility] Outpatient Registration Lab/Ekg, [address] [place] [address] [place] [address], [phone], 03/14/2025 10:38:13 CBC w/ auto diff 2024 025 [facility] Outpatient Registration Lab/Ekg, [address] [place] [address] [place] [address], [phone], 03/14/2025 10:38:12 lipid panel, serum 2023 024 [facility] (Lab), [address] [place] [address] [place] [address], [phone], 04/05/2024 16:08:04 CMP, serum or plasma 2023 024 [facility] (Lab), [address] [place] [address] [place] [address], [phone], 04/05/2024 15:50:39 CBC w/ auto diff 2023 024 [facility] (Lab), [address] [place] [address] [place] [address], [phone], 04/05/2024 15:50:40 Referral None recorded. Procedures None recorded. Surgeries None recorded. Imaging None recorded. Medication Orders oxybutyni n chloride ER 10 mg tablet,ex tended release 24 hr 2024 025 [id number], [address], [place], [phone], 11/06/2024 13:12:45 benzonata te 200 mg capsule 2023 024 [email or web address] [facility] #[id number], [address], [place], [id number], 04/05/2024 15:58:45 Zithromax Z-Elliott 250 mg tablet 2023 024 [email or web address] [facility] #[id number], [address], [place], [id number], 11/06/2024 13:43:30 Patient TargetsNo targets recorded. Patient Instructions Encounter Date Encounter Id Patient Instructions Last Modified By Organization Details Last Modified Time 11/29/2023 [id number] A healthy lifestyle: care instructions Not available 11/29/2023 22:51:15 11/06/2024 [id number] A healthy lifestyle: care instructions [email or web address] Not available 11/06/2024 13:12:45 Reason for Referral None Reported. Results Created Date Observation Date Name Description Value Unit Range Abnormal Flag Note LastModifiedBy Organization Detail LastModifiedTime 11/04/1911/05/2024 Bacte maria a ident ified in Urine by Cultu re specimen source identified URINE CLEAN CATCH Not Available Not Available 03:27:40 11/04/19 25 11/05/2024 Bacte maria a ident ified in Urine by Cultu re service comment NO SPECIA L REQUES T Not Available Not Available 03:27:40 11/04/19 25 11/05/2024 Bacte maria a ident ified in Urine by Cultu re bacteria identified in specimen by culture >100,0 00 COL/ML ESCHER ICHIA COLI abnormal Not Available Not Available 03:27:40 11/04/19 25 11/05/2024 Bacte maria a ident ified in Urine by Cultu re interpretati on and review of laboratory results Abnorm al Not Available Not Available 03:27:40 11/04/19 25 11/03/2024 Urina lysis macro (dips tick) panel - Urine color of urine RED text: yellow abnormal Not Available Not Available 11/03/2024 17:03:17 11/04/19 25 11/03/2024 Urina lysis macro (dips tick) panel - Urine clarity of urine CLOUDY text: clear abnormal Not Available Not Available 11/03/2024 17:03:17 11/04/19 25 11/03/2024 Urina lysis macro (dips tick) panel - Urine glucose [mass/volume ] in urine NEGATI VE text: negati ve mg/dL Not Available Not Available 11/03/2024 17:03:17 11/04/19 25 11/03/2024 Urina lysis macro (dips tick) panel - Urine bilirubin.to gloria [mass/volume ] in urine 3+ (LARGE ) text: negati ve abnormal Not Available Not Available 11/03/2024 17:03:17 11/04/19 25 11/03/2024 Urina lysis macro (dips tick) panel - Urine ketones [presence] in urine 5 (TRACE ) text: negati ve mg/dL abnormal Not Available Not Available 11/03/2024 17:03:17 11/04/19 25 11/03/2024 Urina lysis macro (dips tick) panel - Urine specific gravity of urine 1.03 low: 1.001h igh: 1.035 Not Available Not Available 11/03/2024 17:03:17 11/04/19 25 11/03/2024 Urina lysis macro (dips tick) panel - Urine hemoglobin [presence] in urine by test strip LARGE (3+ Hemoly zed, About 250 rbc/uL ) text: negati ve abnormal Not Available Not Available 11/03/2024 17:03:17 11/04/19 25 11/03/2024 Urina lysis macro (dips tick) panel - Urine pH of urine 6 low: 5high: 9 Not Available Not Available 11/03/2024 17:03:17 11/04/19 25 11/03/2024 Urina lysis macro (dips tick) panel - Urine protein [presence] in urine by test strip 4+ (>=200 0) text: negati ve mg/dL abnormal Not Available Not Available 11/03/2024 17:03:17 11/04/19 25 11/03/2024 Urina lysis macro (dips tick) panel - Urine urobilinogen [units/volum e] in urine by test strip Normal text: 0.2 - 1.0 eu/dL = mg/dL Not Available Not Available 11/03/2024 17:03:17 11/04/19 25 11/03/2024 Urina lysis macro (dips tick) panel - Urine nitrite [presence] in urine by test strip POSITI VE text: negati ve mg/dL abnormal Not Available Not Available 11/03/2024 17:03:17 11/04/19 25 11/03/2024 Urina lysis macro (dips tick) panel - Urine leukocyte esterase [presence] in urine by test strip 3+ (LARGE ) text: negati ve abnormal Not Available Not Available 11/03/2024 17:03:17 11/04/19 25 11/03/2024 Urina lysis macro (dips tick) panel - Urine interpretati on and review of laboratory results Abnorm al Not Available Not Available 17:03:17 07/28/19 24 elect rocar diogr am No observ ation record ed. [email or web address] In-Office Order Internal Use Only DO Not Attach Compendium DO Not Attach Compendium, Do Not Delete/merge, [id number] 07/28/2023 14:43:58 07/28/19 24 07/28/2023 [facility] rocar diogr am No observ ation record ed. BARCODE In-Office Order Internal Use Only DO Not Attach Compendium DO Not Attach Compendium, Do Not Delete/merge, [id number] 07/28/2023 15:29:02 08/20/19 24 08/20/2023 XR, hand, 3 or more view No observ ation record ed. [email or web address] [facility] [address], [place], [address], 08/20/2023 14:48:45 09/02/19 24 08/17/2023 tread mill nucle ar stres s test (PROC ) No observ ation record ed. [address] (Cardiology & Emg) [address], [place], [address], 09/05/2023 23:17:41 12/08/19 24 08/05/2023 MRI, brain , w/wo contr ast No observ ation record ed. [address], [place], [address], 12/09/2023 12:55:38 04/05/20 24 04/05/2024 XR, chest , 2 view No observ ation record ed. [address] [address], [place], [address], 04/05/2024 21:06:18 04/05/2004/05/2024 XR, chest , 2 view No observ ation record ed. [address] [address], [place], [address], 04/05/2024 14:30:03 05/19/19 25 05/19/2024 MAMMO , scree tip, digit al, bilat eral No observ ation record ed. [address] [facility], [place], [address], 05/22/2024 14:00:44 05/30/19 25 10/17/2021 CT, abdom en, w/wo contr ast No observ ation record ed. [email or web address] Not Available 2024 14:28:55 07/04/19 25 06/26/2024 CT, abdom en + pelvi s, w/wo contr ast No observ ation record ed. [facility] Medical Records [address] [facility], [place], [address], 07/07/2024 12:23:25 Result Notes None recorded. Problems Name Problem SNOMED Code Status Onset Date Resolution Date Notes Provider Name and Address Organization Details Recorded Time Headache 95875752 Active 2023 Miller Caceres MD Attn: Tyesha g,[address] [facility], [place], [address], [facility] 4 14:56:54 Dyspnea on exertion 35529347 Active 2023 Miller Caceres MD Attn: Silvajennifer mack,[address] [place] [address], [address] [place] [address] 2, [place] - [facility] 4 14:56:54 Pain of joint 98641616 Active 2023 Miller Caceres MD Attn: Tyesha mack,[address] [place], [place], [address] [place] [address] 2, [place] - [facility] 4 14:56:57 Neck pain 79311497 Active 2023 Miller Caceres MD Attn: Tyesha martina,[address] [place] [address], [address] [place] [address] 2, [facility] - [facility] 4 14:57:00 Numbness of face 800097808 Active 2023 Miller Caceres MD Attn: Tyesha mack,[address] [place], [place], [address] [place] [address] 2, [place] - [facility] 4 14:57:04 Stricture of esophagus 54895089 Active 2023 Miller Caceres MD Attn: Tyesha mack,[address] [place], [place], [address] [place] [address] 2, [place] - [facility] 4 14:57:20 Overactive urinary bladder 051297250 Active 2023 Miller Caceres MD Attn: Tyesha mack,[address] [place], [place], [address] [place] [address] 2, [place] - [facility] 4 14:58:07 Hyperlipidemia 03638216 Active 2024 Lbian Vides [place] null, [place] - [facility] 5 11:35:28 Urinary incontinence 690560018 Active 2024 Liban Vides [place] null, [place] - [facility] 5 11:35:29 Problem Notes None recorded. Procedures Surgical History Date Name Laterality Status Provider Name and Address Organization Details Recorded Time partial hysterectomy completed Samra Penn [place] - [facility] 07/28/2023 12:49:04 Cholecystectomy completed STEPHANIE Holly - [facility] 08/23/2023 11:24:33 Imaging Results None recorded. Procedure Notes None recorded. Medical Equipment None Reported. Allergies Allergen ID Allergen Name Allergen Category Reaction Reaction Severity Criticality Documentation Date Start Date Code Code System Note Provider Name and Address Organization Details Recorded Time 969406 Stadol medicatio n Not available Not available Not available 07/28/2023 87611 RxNorm STEPHANIE [place] - [facility] 4 12:42:09 719570 Iodinated contrast media (substanc e) medicatio n Not available Not available Not available 07/28/2023 39292 2004 SNOMED STEPHANIE [place] - [facility] 4 12:42:21 855887 shellfish derived food,medi cation Not available Not available Not available 07/28/2023 STEPHANIE Jefferson [facility] 4 12:42:30 Medications Name Sig Start Date Stop Date Status Note LastModified by Organization Details LastModified Time semaglutide 2mg - bpc-157 1.25mg - b6 40mg/ml injectable - 2ml vial INJECT 12 UNITS SUBCUTANE OUSLY EVERY WEEK ON WEEK 1-4 THEN 25 UNITS ON WEEK 5-8 07/27 completed Not Available Not Available Not Available amoxicillin 500 mg capsule TAKE ONE CAPSULE BY MOUTH EVERY 8 HOURS UNTIL GONE 03/27 completed Not Available Not Available Not Available fluconazole 100 mg tablet TAKE 1 TABLET BY MOUTH DAILY active Not Available Not Available No t Available atorvastati n 40 mg tablet TAKE 1 TABLET BY MOUTH EVERY DAY 11/28 completed Not Available Not Available Not Available atorvastati n 80 mg tablet 11/06 completed Not Available Not Available Not Available doxycycline hyclate 100 mg capsule TAKE 1 CAPSULE BY MOUTH TWICE DAILY FOR 7 DAYS 07/27 completed Not Available Not Available Not Available diphenhydra mine 50 mg tablet take 1 tablet 1hr proir to contrast 2024 active Not Available Not Available Not Avai lable oxybutynin chloride ER 10 mg tablet,exte nded release 24 hr Take 1 tablet every day by oral route. 2024 active Not Available Not Available Not Avai lable tizanidine 4 mg tablet 07/27 completed Not Available Not Available Not Available benzonatate 200 mg capsule Take 1 capsule 3 times a day by oral route as needed. 2023 active Not Available Not Available Not Avai lable hydrocodone 5 mg-acetamin ophen 325 mg tablet TAKE ONE TABLET BY MOUTH EVERY 4 TO 6 HOURS NEEDED FOR PAIN 07/27 completed Not Available Not Available Not Available phenazopyri dine 200 mg tablet TAKE 1 TABLET BY MOUTH THREE TIMES DAILY NEEDED FOR PAIN 07/27 completed Not Available Not Available Not Available ondansetron HCl 4 mg tablet TAKE 1 TABLET BY MOUTH EVERY 6 8 HOURS NEEDED FOR NAUSEA active Not Available Not Available No t Available methylpredn isolone 32 mg tablet take 1 tablet 12hrs and 2 hours prior to contrast 11/06 completed Not Available Not Available Not Available Zithromax Z-Elliott 250 mg tablet Take 1 dose pk by oral route as directed. 11/06 completed Not Available Not Available Not Available topiramate 25 mg tablet 11/28 completed Not Available Not Available Not Available metronidazo le 500 mg tablet TAKE 1 TABLET BY MOUTH EVERY 8 HOURS FOR 10 DAYS 07/27 completed Not Available Not Available Not Available sulfamethox azole 800 mg-trimetho prim 160 mg tablet TAKE 1 TABLET BY MOUTH EVERY 12 HOURS FOR 7 DAYS 07/27 completed Not Available Not Available Not Available Macrobid 100 mg capsule Take 1 capsule twice a day by oral route for 5 days. 01/31 completed Not Available Not Available Not Available oxycodone-a cetaminophe n 5 mg-325 mg tablet TAKE 1 TABLET BY MOUTH EVERY 4 TO 6 HOURS NEEDED 11/06 completed Not Available Not Available Not Available citalopram 20 mg tablet 11/06 completed Not Available Not Available Not Available amitriptyli ne 10 mg tablet 11/06 completed Not Available Not Available Not Available phenazopyri dine 100 mg tablet TAKE 1 TABLET BY MOUTH THREE TIMES DAILY NEEDED FOR PAIN active Not Available Not Available No t Available rizatriptan 10 mg disintegrat ing tablet DISSOLVE 1 TABLET ON THE TONGUE DAILY NEEDED. MAY REPEAT 1 TIME FOR MIGRAINE. NO MORE THAN 30 MG IN A 24 HOUR PERIOD active Not Available Not Available No t Available cephalexin 500 mg capsule TAKE 1 CAPSULE BY MOUTH ONCE DAILY active Not Available Not Available No t Available methylpredn isolone 8 mg tablet TAKE 4 TABLETS BY MOUTH 12 HOURS AND 2 HOURS PRIOR TO CONTRAST active Not Available Not Available No t Available prednisone 50 mg tablet TAKE 1 TABLET BY MOUTH DAILY FOR 4 DAYS 07/27 completed Not Available Not Available Not Available Banophen 25 mg capsule TAKE 2 CAPLET BY MOUTH 1 HOUR PRIOR TO SCHEDULED CT EXAM NEEDED FOR ALLERGIC REACTION 07/27 completed Not Available Not Available Not Available mupirocin 2 % topical ointment APPLY TOPICALLY TO THE AFFECTED AREA TWICE DAILY FOR 7 DAYS 07/27 completed Not Available Not Available Not Available estradiol 0.5 mg tablet TAKE 1 TABLET BY MOUTH DAILY active Not Available Not Available No t Available estradiol 0.01% (0.1 mg/gram) vaginal cream USE 1 GRAM VAGINALLY 3 TIMES A WEEK active Not Available Not Available No t Available methylpredn isolone 4 mg tablets in a dose pack FOLLOW PACKAGE DIRECTION S 07/27 completed Not Available Not Available Not Available albuterol sulfate HFA 90 mcg/actuati on aerosol inhaler INHALE 2 PUFFS INTO THE LUNGS EVERY 6 HOURS NEEDED FOR WHEEZING active Not Available Not Available No t Available ondansetron 4 mg disintegrat ing tablet DISSOLVE 1 TABLET ON TONGUE EVERY 6 TO 8 HOURS NEEDED FOR NAUSEA active Not Available Not Available No t Available diazepam 5 mg tablet TAKE 1 TABLET BY MOUTH SINGLE DOSE 1 HOUR BEFORE PROCEDURE 07/27 completed Not Available Not Available Not Available omeprazole active Not Available Not Av ailable Not Available Banophen 50 mg capsule TAKE 1 CAPSULE BY MOUTH 1 HOUR PRIOR TO CONTRAST active Not Available Not Available No t Available Vitals Date Recorded Body height Body mass index (BMI) Body weight Heart rate Body temperature Oxygen saturation Oxygen saturation in Arterial blood by Pulse oximetry Systolic And Diastolic Provider Name and Address Organization Details Last Updated DateTime 4 162.56 cm 24.5 kg/m2 39384.9 9 g 74 /min 98.4 [degF] 95 % 95 % 116/72 mm[Hg] Maryana Escalera [place] - [facility] 4 11:31:02 Date Recorded Body height Body mass index (BMI) Body weight Heart rate Oxygen saturation Oxygen saturation in Arterial blood by Pulse oximetry Systolic And Diastolic Provider Name and Address Organization Details Last Updated DateTime 5 162.56 cm 20.9 kg/m2 04683.2 7 g 88 /min 97 % 97 % 118/62 mm[Hg] Tiffanie Mendoza MA [facility] 5 10:55:33 Date Recorded Body height Body mass index (BMI) Body weight Body temperature Oxygen saturation Oxygen saturation in Arterial blood by Pulse oximetry Heart rate Systolic And Diastolic Provider Name and Address Organization Details Last Updated DateTime 4 162.56 cm 24.2 kg/m2 60583.5 2 g 98.2 [degF] 99 % 99 % 74 /min 112/72 mm[Hg] Rosa Isela Gant MA [facility] 4 11:17:00 Date Recorded Body height Body mass index (BMI) Body weight Heart rate Oxygen saturation Oxygen saturation in Arterial blood by Pulse oximetry Systolic And Diastolic Provider Name and Address Organization Details Last Updated DateTime 4 162.56 cm 24.1 kg/m2 49707.7 3 g 80 /min 97 % 97 % 120/66 mm[Hg] Tiffanie Mendoza MA [facility] 4 11:02:37 Date Recorded Body height Body mass index (BMI) Body weight Heart rate Oxygen saturation Oxygen saturation in Arterial blood by Pulse oximetry Systolic And Diastolic Provider Name and Address Organization Details Last Updated DateTime 4 162.56 cm 23.8 kg/m2 18523.9 8 g 93 /min 98 % 98 % 122/82 mm[Hg] Vibha Wolf MA [facility] 4 14:20:33 Social History Question Answer Notes LastModified by Organizat ion Details LastModified Time Tobacco Smoking Status Never Smoker Samra [place] [facility] 07/28/2023 12:47:55 Do You Have An Advance Directive? No Information not available 07/28/2023 Are You Blind Or Do You Have Difficulty Seeing? No Information not available 07/28/2023 What Is Your Level Of Caffeine Consumption? Occasional Information not available 07/28/2023 Are You Deaf Or Do You Have Serious Difficulty Hearing? No [email or web address] Information not available 08/23/2023 What Type Of Diet Are You Following? REGULAR Information not available 07/28/2023 What Was The Date Of Your Most Recent Tobacco Screening? 11/06/2024 [email or web address] Information not available 11/06/2024 What Is Your Relationship Status? Information not available 07/28/2023 Do You Use Your Seat Belt Or Car Seat Routinely? Yes Information not available 07/28/2023 Do You Have Smoke And Carbon Monoxide Detectors In Your Home? Yes Information not available 07/28/2023 Do You Use Sunscreen Routinely? No Information not available 07/28/2023 Has Tobacco Cessation Counseling Been Provided? No Information not available 07/28/2023 Sex: Female Functional Status Question Answer Note LastModified by Organizat ion Details LastModified Time Do you use any illicit or recreational drugs? No Information not available 07/28/2023 Do you or have you ever used any other forms of tobacco or nicotine? No Information not available 07/28/2023 What is your level of alcohol consumption? Occasional Information not available 07/28/2023 Are you able to care for yourself independently? Yes Information not available 07/28/2023 What is your exercise level? Occasional Information not available 07/28/2023 Mental Status Question Answer Note LastModified by Organization D etails LastModified Time Do you feel stressed (tense, restless, nervous, or anxious, or unable to sleep at night)? [id number] Information not available 07/28/2023 Family History Relationship Description Onset Age of this Age Resolved Age Notes LastModified by Organization Details LastModified Time Mother Malignant neoplasm of breast [email or web address] Not available 07/09 12:46:42 Mother Heart disease [email or web address] Not available 07/09 12:47:03 Mother Hypercholest erolemia [email or web address] Not available 07/09 12:47:19 Mother Hypertensive disorder [email or web address] Not available 07/09 12:47:29 Father Coronary arterioscler osis [email or web address] Not available 07/09 12:46:49 Father Heart disease [email or web address] Not available 07/09 12:47:03 Brother Heart disease [email or web address] Not available 07/09 12:47:03 Brother Hypercholest erolemia bandersonma Not available 07/09 12:47:19 Sister Migraine [email or web address] Not availa ble 07/28/2023 12:47:37 Medical History Condition Response Coronary Artery Disease N Other N High Blood Pressure N Atrial Fibrillation N Kidney or Bladder Problems Y Thyroid Problems N GI Problems Y Depression N COPD N Blood Clots N Skin Problems N Anemia N Heart Attack ([place]) N Anxiety Disorder N Diabetes N Muscle, Joint, or Bone Problems N Seizures/Epilepsy N Acid Reflux (GERD) Y Cancer N Stroke N Asthma N Allergies N High Cholesterol Y Hepatitis N Liver Disease N Headaches Y Heart Failure N Osteoporosis N Gynecological HistoryNo gynecological history recorded. Obstetrics History GPAL:G 0 P 0 0 0 0 Immunizations Vaccine Type Date Status Note Provider Nam e and Address Organization Details Recorded Time COVID-19, mRNA, LNP-S, PF, 30 mcg/0.3 mL dose 10/14/2020 completed Liban Vides [place] null, [place] [facility] 06/01/2024 17:45:33 COVID-19, mRNA, LNP-S, PF, 30 mcg/0.3 mL dose 11/04/2020 completed Liban Vidse [place], [place] [facility] 06/01/2024 17:45:33 Past Encounters Encounter ID Performer Location Encounter Start Date Encounter Closed Date Diagnosis/Indication Diagnosis SNOMED-CT Code Diagnosis ICD10 Code Diagnosis IMO Codes Diagnosis Note [id number] Miller Caceres MD [facility] (Adult Med) [address] [place] [address] 07/28/2023 12:28:29 07/28/2023 14:13:53 Dyspnea on exertion 00623720 R06.09 Headache 69277754 R51.9 Pain of joint 84759969 M 25.50 Neck pain 01284977 M54.2 Numbness of face 8753028 09 R20.0 Stricture of esophagus 72218567 K22.2 Overactive urinary bladder 322496989 N32.81 [id number] Miller Caceres MD [facility] [place] [address] [place] [id number] 08/23/2023 11:10:07 08/23/2023 12:17:21 Numbness of face 824044106 R20.0 Neck pain 13738800 M54.2 [id number] Miller Caceres MD [facility] [place] [address] [place] [phone] 11/29/2023 11:04:38 11/29/2023 12:05:26 Obesity 892597677 E66.8 Dyslipidemia 865454544 E 78.5 Anxiety 27075624 F41.9 [id number] Miller Caecres MD [facility] [place] [address] [place] [id number] 03/27/2024 10:38:40 03/27/2024 11:50:58 Screening for cardiovascular system disease 972941781 Z13.6 Overactive urinary bladder 948535896 N32.81 Headache 74735503 R51.9 Stricture of esophagus 97652079 K22.2 Pain of joint 34275767 M 25.50 [id number] Miller Caceres MD [facility] (Adult Med) [address] [place] [id number] 04/05/2024 13:47:58 04/05/2024 14:28:29 Body mass index 20-24 - normal 666882012 Z68.23 Cough 51032621 R05.9 [id number] Miller Caceres MD [facility] [place] [address] [place] [id number] 11/06/2024 10:38:04 11/06/2024 11:34:01 Body mass index 20-24 - normal 962991391 Z68.20 31450744 BMI 20.9 Hyperlipidemia 74846197 E78.5 [id number] Urinary incontinence [id number] R32 [id number] Headache [id number] R51.9 Health Concerns Section Related Observation LastModified by Organization Detai ls LastModified Time None Recorded Concern Status LastModified by Organization Details LastModified Time None Recorded Advance Directives Directive N: Payers Insurance Date Sequence Insurance Name Policy Number Policy Myrick Covered Member ID Myrick Member ID Guarantor Name 11/02/2024 1 [facility] [id number] Leigh Ann Jay [id number] Leigh Ann Jay 11/07/2024 1 [facility] [id number] Leigh Ann Jay [id number] Leigh Ann Jay Notes Date Note Type Note Provider Name and Address Organization Details Recorded Time 08/23/2023 text/html She comes in for follow-up of her neurological complaint 1 episode of the facial numbness since I seen her last her hypercoagulable workup was negative. She also had a pelvic exam routine and there was some abnormalities necessitating further testing by ADVERTISING SOLICITOR Miller Caceres MD Attn: Accounting, [address] [place], [address], [place] [facility] 08/23/2023 22:12:58 11/29/2023 text/html interval history she saw GI for IBS symptoms she had an issue where she had trouble speaking talk to her neurologist they still feel like she is having migraines dating tried to give amviogy but unsuccessful Miller Caceres MD Attn: Accounting, [address] [place], [address], [place] [facility] 11/29/2023 22:51:17 03/27/2024 text/html her migraine equivalent seem to be doing okay urinary incontinence stable dyslipidemia needs to have blood work checked. History of stricture of esophagus asymptomatic. Joint pain seems to be doing fine. Anxiety is up a little bit she has had niece and niece's killed tragically an automobile accident Miller Caceres MD Attn: Accounting, [address] [place], [address], [place] [facility] 04/09/2024 21:18:44 04/05/2024 text/html cough and congestion COVID negative been going on for few weeks now with some yellow sputum no fever chills night sweats weight loss has not had any hemoptysis no clear-cut shortness of breath Miller Caceres MD Attn: Accounting, [address] [place], [address], [facility] 04/08/2024 13:50:48 11/06/2024 text/html UTI Levaquin getting better. Needs medicines for her chronic urinary overactive bladder symptomatology. History a stricture of esophagus no symptoms at this time dyslipidemia she needs to get that checked. Currently not taking any statin Miller Caceres MD Attn: Accounting,[address] [facility], [place], [address], [facility] 11/06/2024 13:45:04 OBGyn Episode No OBEpisode recorded.
--- OUTSIDE RECORDS SUMMARY | 2025-03-16 16:50 | XMS_ITS | Encounter Summary ---
Author Organization [facility] Address [address] [place] [address] Care Team Providers Care Steel Pourer Helper Name Role Phone Medardo Ramsey MD Primary Care Provider [phone] Maryanne Serrano Unavailable [phone] Encounter Details Date Type Department Care Team (Late st Contact Info) Description 12/09/2022 Qualiallt Message Enc [facility] Medical Group Family & Internal Medicine [address] [place] [address] Medardo Ramsey MD [address] [place] [address] UTI Follow up Social History Tobacco Use Types Packs/Day Years [...] on file documented as of this encounter Progress Notes * ANAID Valencia - 12/11/2022 3:33 PM CDT Macrobid sent over Stop bactrim * Medardo Ramsey MD - 12/10/2022 1:13 PM CDT What antibiotic is she on, and was there a culture done. We can always have her come in for a UA documented in this encounter Plan of Treatment Not on file documented as of this encounter Visit Diagnoses Diagnosis Acute cystitis with hematuria- Primary Acute cystitis documented in this encounter Additional Health Concerns Assessment Noted Time PHQ-9 Depression Total Score: 0 04/18/20 21 10:44 AM LABORATORY TECHNICIAN documented as of this encounter Care Teams Steel Pourer Helper Relationship Specialty Start Date End Date Medardo Ramsey MD [address] [place] [address] PCP - General 04/26/14 Maryanne Serrano APNP [address] [place] [address] Nurse Practitioner NURSE PRACTITIONER 04/21/23 documented as of this encounter
[2025-03-16 17:13] LABS: Hematocrit 35.5 % (37.0-47.0); Hemoglobin 11.6 g/dL (12.0-15.0); Immature Granulocyte Percent A 0.2 % (0-0.5); Lymphocytes Absolute Auto 1.83 K/mm3 (0.9-3.2); Mean Corpuscular HGB Conc 32.7 g/dl (32-36); Mean Corpuscular Hemoglobin 30.9 pg (26-34); Mean Corpuscular Volume 94.4 fl (80-100); Nucleated Red Blood Cells Absolute Auto 0.000 K/mm3 (0.0-0.012); Nucleated Red Blood Cells Perc 0.0 % (0.0-0.2); Platelet Count Result 248 k/mm3 (150-375); Red Blood Count 3.76 M/mm3 (4.2-5.4); White Blood Count 5.0 K/mm3 (4.5-10.0)
[2025-03-16 17:26] LABS: Alanine Aminotransferase 19 U/L (6-35); Albumin Level 4.1 g/dL (3.5-5.1); Alkaline Phosphatase 52 U/L (38-126); Anion Gap 6 mmol/L (4-12); Aspartate Amino Transferase 26 U/L (14-36); Bilirubin,Total 0.4 mg/dL (0.2-1.3); Blood Urea Nitrogen 8 mg/dL (7-17); Calcium 8.5 mg/dL (8.4-10.2); Carbon Dioxide 30 mmol/L (22-30); Chloride 101 mmol/L (98-107); Cholesterol 196 mg/dL (0-200); Estimated Glomerular Filt Rate > 60; Glucose 100 mg/dL (65-110); HDL Direct 61 mg/dL; Potassium 3.7 mmol/L (3.4-5.0); Sodium 137 mmol/L (137-145); Total Protein 7.0 g/dL (6.3-8.2); Triglycerides 123 mg/dL (<150)
== END 2025-03-16 16:47 | disposition home or self-care (01) ==
LOC: ANHLAB 16:49
PROVIDERS: PCP Internal Medicine; Visit Provider Internal Medicine
DX: Z13.6 Encounter for screening for cardiovascular disorders (principal)
CPT/HCPCS: 36415; 80053; 80061; 85025

== ENCOUNTER 2025-04-09 08:02 | Outpatient (CLI) | payer BC, SELFPAY ==
--- OUTSIDE RECORDS SUMMARY | 2025-04-09 08:15 | XMS_ITS | Clinical Summary ---
Author Organization [facility] Address [address] [facility] [place] [address] Care Team Providers Care Carburetor Expert Name Role Phone Marie Lamebrt MD Primary Care Provider [phone] Source Comments [facility],non-owned Affiliates and Associated Physician Practices is amultiple site organization consisting of ambulatory clinics and hospital sitesin [place], [place], [place] and [place]. This disclosure is being madepursuant to the Care Everywhere program and may not contain all information available regarding this patient. Last updated 18.[facility] Allergies Active Allergy Reactions Criticality Noted Date [...] needed for Nausea/Vomiti ng Active rizatriptan, disintegrating, (Maxalt-NURSE STAFF INDUSTRIAL) 10 MG tabletIndication s:Migraine with aura and [...] of 3 - 19+ 3-dose series) 09/12/1991 Cervical Cancer Screening 1993 PAP SMEAR 1993 PAP with HPV 2002 PNEUMOCOCCAL VACCINE 50+ (1 of 1 - PCV) 2022 ZOSTER VACCINE (1 of 2) 2022 MAMMOGRAM 09/23/2023 09/22/2021, 04/21/2019 DEPRESSION SCREENING 05/10/2024 COVID-19 VACCINE (1 - 2024-2 6 season) 2025 INFLUENZA VACCINE (#1) 2025 HEPATITIS [...] patient's age to complete this topic Insurance HEALTH CARE CARE * Guarantor: LEIGH ANN TSANG Account Type Relation to Patient Date of Phone Billing Address Personal/Family [address] [place] [address] [facility] SELF PAY NO INSURANCE Member Subscriber Plan / Payer (Ef fective for All Dates) Name:Leigh Ann Tsang Member ID:Not on file Relation to Subscriber:Not on file Name:LEIGH ANN TSANG Subscriber ID:Not on file Address: [facility] [place] [address] Payer ID:Not on file Group ID:Not on file Type:Self Pay Address: [place], [place] * Guarantor: LEIGH ANN TSANG Account Type Relation to Patient Date of Phone Billing Address Personal/Family [address] [place] [address] [facility] [facility] SELF PAY NO INSURANCE Member Subscriber Plan / Payer (Ef fective for All Dates) Name:Leigh Ann Tsang Member ID:Not on file Relation to Subscriber:Not on file Name:LEIGH ANN TSANG Subscriber ID:Not on file Address: [facility] [place] [address] Payer ID:Not on file Group ID:Not on file Type:Self Pay Address: [place], [place] * Guarantor: LEIGH ANN TSANG Account Type Relation to Patient Date of Phone Billing Address Personal/Family [address] [place] [address] [facility] [facility] SELF PAY NO INSURANCE Member Subscriber Plan / Payer (Ef fective for All Dates) Name:Leigh Ann Tsang Member ID:Not on file Relation to Subscriber:Not on file Name:LEIGH ANN TSANG Subscriber ID:Not on file Address: [facility] [place] [address] Payer ID:Not on file Group ID:Not on file Type:Self Pay Address: [place], [place] Care Teams Carburetor Expert Relationship Specialty Start Date End Date Marie Lambert MD [address] [place] [address] PCP - General 11/27/21
--- OUTSIDE RECORDS SUMMARY | 2025-04-09 08:15 | XMS_ITS | Encounter Summary ---
Author Organization [facility] Address [address] [place] [address] Care Team Providers Care Acoustic Warfare Analyst Name Role Phone Medardo Ramsey MD Primary Care Provider Maryanne Serrano APNP Unavailable [phone] Encounter Details Date Type Department Care Team (Late st Contact Info) Description 03/09/2021 ChemiSense Message Enc [facility] Medical Group Family & Internal Medicine [facility] [address] [place] [address] Matt Veronica DO [address] [place] [address] Follow Up/Update Social History Tobacco [...] 11:48 AM Stephanie Santana RN Active * [place] Suicide Severity Rating Scale (Screener/Recent Self-Report) Question [...] on filedocumented in this encounter Care Teams Acoustic Warfare Analyst Relationship Specialty Start Date End Date Medardo Ramsey MD [address] [place] [address] PCP - General 04/26/14 Maryanne Serrano APNP [address] [place] [address] Nurse Practitioner NURSE PRACTITIONER 04/21/23 documented as of this encounter
--- OUTSIDE RECORDS SUMMARY | 2025-04-09 08:15 | XMS_ITS | Encounter Summary ---
Author Organization [facility] Address [facility] [place] [address] Care Team Providers Care Fitness Supervisor Name Role Phone Medardo Ramsey MD Primary Care Provider Maryanne Serrano APNP Unavailable [phone] Encounter Details Date Type Department Care Team (Late st Contact Info) Description 04/27/2022 [facility] Patient Accounts [address] [place] [address] [facility] Provider Monthly Credit Card Payment Social History [...] Coronavirus/COVID-19? No / Unsure 04/14/2022 11:48 AM APPRENTICESHIP TRAINING REPRESENTATIVE documented as of this encounter Plan of Treatment Not on file documented as of this encounter Visit Diagnoses Not on filedocumented in this encounter Additional Health Concerns Assessment Noted Time PHQ-9 Depression Total Score: 0 04/18/20 21 10:44 AM APPRENTICESHIP TRAINING REPRESENTATIVE documented as of this encounter Care Teams Fitness Supervisor Relationship Specialty Start Date End Date Medardo Ramsey MD [address] [place] [address] PCP - General 04/26/14 Maryanne Serrano APNP [address] [place] [address] Nurse Practitioner NURSE PRACTITIONER 04/21/23 documented as of this encounter
--- OUTSIDE RECORDS SUMMARY | 2025-04-09 08:15 | XMS_ITS | Encounter Summary ---
Author Organization [facility] Address [address] [place] [address] Care Team Providers Care Mandarin Teacher Name Role Phone Medardo Ramsey MD Primary Care Provider [phone] Maryanne Serrano Unavailable [phone] Encounter Details Date Type Department Care Team (Late st Contact Info) Description 12/09/2022 My COIt Message Enc [facility] Medical Group Family & Internal Medicine [address] [place] [address] Medardo Ramsey MD [address] [place] [address] UTI Follow up Social History Tobacco [...] Total Score: 0 04/18/20 21 10:44 AM FLY RAISER LOCKSTITCH documented as of this encounter Care Teams Mandarin Teacher Relationship Specialty Start Date End Date Medardo Ramsey MD [address] [place] [address] PCP - General 04/26/14 Maryanne Serrano APNP [address] [place] [address] Nurse Practitioner NURSE PRACTITIONER 04/21/23 documented as of this encounter
--- OUTSIDE RECORDS SUMMARY | 2025-04-09 08:15 | XMS_ITS | Clinical Summary ---
Author Organization [facility] Address [facility] [place] [address] Care Team Providers Care Fashion Consultant Selling Name Role Phone Medardo Ramsey MD Primary Care Provider [phone] Maryanne Serrano APNP Unavailable [phone] Allergies Active Allergy Reactions Criticality Noted Date [...] Mammogram Screening 09/23/2023 09/22/2021, 04/21/2019 PHQ-2 (Physician [place]) 05/10/2024 05/20/2023 Annual Physical 05/20/2024 05/20/2023, 08/22/2020, [...] HEPATITIS C ANTIBODY Routine 04/14/2022 2:37 PM RADIATOR CLEANER Unprotected sex MAMMOGRAM GENERIC (SCAN ORDER) 09/22/2021 from Last 3 Months or Most Recently Relevant to Health Maintenance Results * HEPATITIS C ANTIBODY ([facility] ONLY) (04/14/2022 2:37 PM RADIATOR CLEANER) HEPATITIS C AB NON-REACTI VE NON-REACT TAYLOR 04/15/2022 1:46 PM RADIATOR CLEANER [facility] Comment: ANTIBODIES TO HCV NOT DETECTED. DOES NOT EXCLUDE THE POSSIBILITY OF EXPOSURE TO HCV. 04/14/2022 2:37 PM RADIATOR CLEANER us [facility] Final Resul t [facility] [address] [place] [address], [id number] * MAMMOGRAM GENERIC (09/22/2021) Anatomical Region Laterality Modality Other 09/22/2021 Narrative 09/22/2021 Ordered by an unspecified provider. us Documents Scanned SCANNING Final Result from Last 3 Months or Most Recently Relevant to Health [place] [address] [facility] Advance Directives * Full Code (Latest Code Status on File) Date Activated Date Inactivated Comments 12/27/2017 1:30 PM 12/28/2017 8:06 PM Care Teams Fashion Consultant Selling Relationship Specialty Start Date End Date Medardo Ramsey MD [address] [place] [address] PCP - General 04/26/14 Maryanne Serrano APNP [address] [place] [address] Nurse Practitioner NURSE PRACTITIONER 04/21/23
--- OUTSIDE RECORDS SUMMARY | 2025-04-09 08:15 | XMS_ITS | Encounter Summary ---
Author Organization [facility] Address [address] [place] [address] Care Team Providers Care Nurse Ortho Name Role Phone Medardo Ramsey MD Primary Care Provider [phone] Maryanne Serrano Unavailable [phone] Encounter Details Date Type Department Care Team (Late st Contact Info) Description 11/04/2022 Recurious Message [facility] [address] [place] [address] [facility] Provider Air Quality Message Social History Tobacco [...] Total Score: 0 04/18/20 21 10:44 AM DATA ASSISTANT documented as of this encounter Care Teams Nurse Ortho Relationship Specialty Start Date End Date Medardo Ramsey MD [address] [place] [address] PCP - General 04/26/14 Maryanne Serrano APNP [address] [place] [address] Nurse Practitioner NURSE PRACTITIONER 04/21/23 documented as of this encounter
--- OUTSIDE RECORDS SUMMARY | 2025-04-09 08:15 | XMS_ITS | Patient Health Record ---
Author Organization [facility] Address [address] [place], [place] [id number] Care Team Providers Care Freight Router Name Role Phone LAURYN OREILLY Unavailable [phone] Medardo Ramsey Unavailable Unavailable Reason For Referral No Information Social History Social History Additional Details Category Social Info Options Details Migrated Social History Migrated Social History Alcohol intake : , Smoking Status : Never used tobacco , History of tobacco use : Plan Of Treatment No Information Insurance Providers Payer Name Payer Address Payer Phone Subscriber Number Group Number Insured Name Patient Relationship to Insured Coverage Start Date Coverage End Date [facility] [address] [address] [place] [address] [id number] TRAN TSANG Self - patient is the insured
--- OUTSIDE RECORDS SUMMARY | 2025-04-09 08:15 | XMS_ITS | Encounter Summary ---
Author Organization [facility] Address [facility] [place] [address] Care Team Providers Care Hotel Services Supervisor Name Role Phone Medardo Ramsey MD Primary Care Provider [phone] Maryanne Serrano APNP Unavailable [phone] Encounter Details Date Type Department Care Team (Late st Contact Info) Description 12/09/2020 Top Hand Rodeo Tour Message Enc [facility] Medical Group Family & Internal Medicine [address] [address] Medardo Ramsey MD [facility] [place] [address] RE: FW: Question Social History [...] on filedocumented in this encounter Care Teams Hotel Services Supervisor Relationship Specialty Start Date End Date Medardo Ramsey MD [address] [place] [address] PCP - General 04/26/14 Maryanne Serrano APNP [address] [place] [address] Nurse Practitioner NURSE PRACTITIONER 04/21/23 documented as of this encounter
--- OUTSIDE RECORDS SUMMARY | 2025-04-09 08:15 | XMS_ITS | Encounter Summary ---
Author Organization [facility] Address [facility] [place] [address] Care Team Providers Care Rifle Case Repairer Name Role Phone Medardo Ramsey MD Primary Care Provider [phone] Maryanne Serrano APNP Unavailable [phone] Encounter Details Date Type Department Care Team (Late st Contact Info) Description 11/19/2021 [facility] Patient Accounts [address] [place] [address] [place], [facility] Provider Auto Pay Payment Plan Social History [...] Total Score: 0 04/18/20 21 10:44 AM LIQUOR MAKER documented as of this encounter Care Teams Rifle Case Repairer Relationship Specialty Start Date End Date Medardo Ramsey MD [address] [place] [address] PCP - General 04/26/14 Maryanne Serrano APNP [address] [place] [address] Nurse Practitioner NURSE PRACTITIONER 04/21/23 documented as of this encounter
== END 2025-04-09 08:03 | disposition home or self-care (01) ==
LOC: ANHSURGERY 08:05
PROVIDERS: PCP Internal Medicine; Visit Provider Obstetrics & Gynecology
DX: R10.22 Pelvic and perineal pain left side (principal); Z01.818 Encounter for other preprocedural examination
CPT/HCPCS: 36415; 86850; 86900; 86901

== ENCOUNTER 2025-04-10 03:02 | Day surgery (SDC) | payer BC, SELFPAY ==
[2025-04-04 14:37] VITALS: BMI 21.1
--- NOTE | 2025-04-04 15:26 | PC.NURSE ---
[facility] has started construction of its new state of the art ER which will open Spring 2026. With this, we anticipate parking may be a challenge for some our surgical patients and families. Parking spaces are limited but are available for all Surgical, obstetrics, and ER patients sharing this lot. If you arrive and find you are having a hard time finding a parking space, please note that we understand the challenges, please drive around the hospital and park near Hospital Entrance 1. When you enter this entrance, you can ask a volunteer to direct or take you back to the surgical waiting area to check in. We appreciate everyone?s understanding of these expected challenges while we build for your future. Report to the Outpatient Waiting Room, entrance under the green pavilion located off [address], at 0600 on 04-10-25. Planned Procedure Time: 0730.? Time changes happen often and if your time is changed the preop area will call you the afternoon before. - You and your visitor will be asked to self-screen and do not enter if you have any COVID symptoms. Please call surgeon if you need to reschedule. - A mask is optional within the hospital at this time. Patients may have clear liquids (water, carbonated beverages, clear teas, apple juice) until 3 hours prior to surgery with a maximum of 20 ounces. (0430) - No food from midnight until time of surgery and no smoking, or chewing tobacco (or any form of nicotine). No chewing gum, candy or mints. - Infants may have breast milk until 4 hours before surgery, formula 6 hours prior to surgery. - Children will be allowed to drink immediately following surgery.? If applicable, please bring a bottle or sippy cup to assist with drinking. Juice, water, soda, and popsicles are readily available.? For infants on formula, please bring formula the day of surgery.? Pacifiers are allowed. Take only the following medications with a SIP of water on the morning of surgery: None DO NOT STOP ANY OF YOUR OTHER PRESCRIPTION MEDICATIONS PRIOR TO SURGERY EXCEPT THE FOLLOWING Hold all vitamins and supplements for 3 days per anesthesiologist. Medications to discontinue per physician: N/A Please no make-up, nail azerbaijani, hairspray, perfume, deodorant, or body powder the day of surgery.? No jewelry (including any body piercings) or valuables the day of surgery, leave them at home.? Please take a shower or bath the night before, or the morning of, surgery with an antibacterial soap.? Wear comfortable, loose fitting clothing.? Children are encouraged to wear pajamas. - Jewelry must be removed prior to entering the operating room.? Rings and piercings that are not removed may be cut off. - The hospital will not accept responsibility for valuables.? - Please leave all valuables, including medications, at home the day of surgery. If you are going home after surgery, a licensed truss driver helper must drive you home.? - NO public transportation without another adult if you receive anesthesia. - We recommend that an adult stay with you for 24 hours following discharge. - We also recommend that you do not drive, make important decision, drink alcoholic beverages, or take any drugs that were not prescribed by your health care provider for at least 24 hours after your discharge time. For Pediatric surgeries, we recommend two adults accompany the child home. Follow any additional instructions given to you from your surgeon. Telephone instructions given to Leigh Ann Jay and asked if any additional questions and then verbalized understanding. Patient advised to call surgeon office or pre surgery nurse liaison [phone] if any additional questions.
--- NOTE | 2025-04-09 09:24 | PM.IMHP2 ---
H&P: HPI History of Present Illness Date/Time: 04/09/25 09:24 a 54-year-old female presents for operative management of left lower quadrant pain. She has been treated with both oral as well as vaginal estrogen and continues to have left lower quadrant pain with intercourse. Otherwise no significant complaints or problems, no change in bowel or urinary function. Previous ultrasound reveals no abnormality of the ovary. Does have history of robotic hysterectomy, as well as bilateral salpingectomy due to ectopic x2. Chief Complaint: Left lower quadrant pain Review of Systems Review of Systems: All systems reviewed & are unremarkable except as noted in HPI and below PMFSH Past Medical History Medical History Cholelithiasis Periumbilical abdominal tenderness with rebound tenderness Abdominal cramping Acute diarrhea Blood in stool Screening mammogram, encounter for Miscarriage Ectopic 03/11/95 01/17/02 Anxiety and depression Colon cancer screening Gastroparesis GERD (gastroesophageal reflux disease) Duodenal ulcer Asthma Esophageal stricture Surgical History Surgical History Hx laparoscopic cholecystectomy 09/16/22 History of suburethral sling procedure (~2010) History of robot-assisted laparoscopic hysterectomy (06/23/12) RA TLH--fibroids History of endometrial ablation History of gynecologic surgery treatment of ectopic x2 History of colonoscopy (11/26/21) Family History Family History Father Acute myocardial infarction, Onset Age: 46 Heart disease Hypertension Sibling Afib Pacemaker Mother Kidney malignancy Congestive heart failure Heart disease Hypertension Malignant tumor of urinary bladder Primary malignant neoplasm of urethra Breast cancer, Onset Age: 72 triple negative breast cancer Daughter Diabetes mellitus Grandparent Cerebrovascular accident maternal grandmother Social History Social History Smoking status: Never smoker Second hand tobacco smoke exposure: No Alcohol intake: current Drinks per week: 0 Alcohol use details: Sometimes; maybe once a month Substance use: never Substance use type: does not use Lack of Transportation: No Lack of Food: Never True Current Housing: I Have Housing Concerned About Future Housing: No Difficulty Paying Gas/Electric Bills: No Difficulty Paying for Meds: No Currently Unemployed: No Education: High School Diploma/GED Difficulty w/ Childcare or Family Care: No Living arrangements: with family Additional living arrangements comments: 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 Gender identity (if verbalized by the patient): Female Sexual Orientation (if Verbalized by the Patient): Straight or Heterosexual Spiritual care concerns: No Meds Home Medications and Allergies Home Medications ?Medication ?Instructions ?Recorded ?Confirmed ?Type estradiol 0.5 mg tablet 0.5 mg PO DAILY #90 tabs 10/03/24 04/04/25 Rx estradiol 0.01% (0.1 mg/gram) 1 g vaginal 3XW #42.5 grams 01/29/25 04/04/25 Rx vaginal cream Allergies Allergy/AdvReac Type Severity Reaction Status Date / Time iohexol (From contrast - CT, Allergy Mild Hives Verified 04/04/25 14:37 X-RAY) shellfish derived Allergy Mild Hives Verified 04/04/25 14:37 butorphanol AdvReac Intermediate Confusion, Verified 04/04/25 14:37 DIFFICULTY RESPONDING Exam Const: General: cooperative and healthy appearing Resp: Effort & Inspection: normal respiratory effort Auscultation: clear to auscultation bilaterally Cardio: Rate: regular rate Rhythm: regular rhythm GI: Inspection: normal to inspection Auscultation: normal bowel sounds : External Female Exam: normal external appearance Speculum Exam - Vagina: normal appearance of the vagina Speculum Exam - Cervix: Cervix absent Bimanual exam- vagina & uterus: uterus absent Bimanual Exam- Adnexa, other: tender on the left Assessment and Plan Assessment and plan (1) Left adnexal tenderness: Code(s): R10.22 - Pelvic and perineal pain left side Status: Acute Assessment and Plan: proceed with robotic assisted left salpingo oophorectomy
[2025-04-10] VITALS (9 sets, daily range): BP systolic 123–153; BP diastolic 60–96; PULSE 65–92; RESP 12–18; TEMP 36.4–36.6; O2SAT 95–100; BMI 21.8
--- OUTSIDE RECORDS SUMMARY | 2025-04-10 03:04 | XMS_ITS | Patient Health Record ---
Author Organization [facility] Address [address] [place], [place] [id number] Care Team Providers Care Commercial Floor Covering Installer Name Role Phone LAURYN OREILLY Unavailable [phone] Medardo Ramsey Unavailable Unavailable Reason For Referral [...] Insured Coverage Start Date Coverage End Date [facility] [address] [address] [place] [id number] TRAN TSANG Self - patient is the insured
--- OUTSIDE RECORDS SUMMARY | 2025-04-10 03:04 | XMS_ITS | Encounter Summary ---
Author Organization [facility] Address [address] [place] [address] Care Team Providers Care Extension Service Specialist Name Role Phone Medardo Ramsey MD Primary Care Provider Maryanne Serrano APNP Unavailable [phone] Encounter Details Date Type Department Care Team (Late st Contact Info) Description 03/09/2021 Firecomms Message Enc [facility] Medical Group Family & Internal Medicine [facility] [address] [place] [address] Matt Veronica DO [address] [place] [address] Follow Up/Update Social History Tobacco [...] 11:48 AM Stephanie Santana RN Active * Duval Suicide Severity Rating Scale (Screener/Recent Self-Report) Question [...] on filedocumented in this encounter Care Teams Extension Service Specialist Relationship Specialty Start Date End Date Medardo Ramsey MD [address] [place] [address] PCP - General 04/26/14 Maryanne Serrano APNP [address] [place] [address] Nurse Practitioner NURSE PRACTITIONER 04/21/23 documented as of this encounter
--- OUTSIDE RECORDS SUMMARY | 2025-04-10 03:04 | XMS_ITS | Encounter Summary ---
Author Organization [facility] Address [address] [place] [address] Care Team Providers Care Flight Steward Name Role Phone Medardo Ramsey MD Primary Care Provider [phone] Maryanne Serrano Unavailable [phone] Encounter Details Date Type Department Care Team (Late st Contact Info) Description 12/09/2022 NewsHuntt Message Enc [facility] Medical Group Family & Internal Medicine [id number] [place] [address] Medardo Ramsey MD [address] [place] [address] UTI Follow up Social History Tobacco [...] Total Score: 0 04/18/20 21 10:44 AM AGRICULTURAL SALES REPRESENTATIVE documented as of this encounter Care Teams Flight Steward Relationship Specialty Start Date End Date Medardo Ramsey MD [address] [place] [address] PCP - General 04/26/14 Maryanne Serrano APNP [address] [place] [address] Nurse Practitioner NURSE PRACTITIONER 04/21/23 documented as of this encounter
--- OUTSIDE RECORDS SUMMARY | 2025-04-10 03:04 | XMS_ITS | Clinical Summary ---
Author Organization [facility] Address [address] [facility] [place] [address] Care Team Providers Care Staging Technician Name Role Phone Marie Lambert MD Primary Care Provider [phone] Source Comments [facility],non-owned Affiliates and Associated Physician Practices is amultiple site organization consisting of ambulatory clinics and hospital sitesin [place], [place], [place] and [place]. This disclosure is being madepursuant to the Care Everywhere program and may not contain all information available regarding this patient. Last updated 18.[facility] Allergies Active Allergy Reactions Criticality Noted Date [...] needed for Nausea/Vomiti ng Active rizatriptan, disintegrating, (Maxalt-ROCKET PROPELLANT PLANT SUPERVISOR) 10 MG tabletIndication s:Migraine with aura and [...] Phone Billing Address Personal/Family [address] [place] [address] [facility] SELF PAY NO INSURANCE Member Subscriber Plan / Payer (Ef fective for All Dates) Name:Leigh Ann Tsang Member ID:Not on file Relation to Subscriber:Not on file Name:LEIGH ANN TSANG Subscriber ID:Not on file Address: [facility] [place] [address] Payer ID:Not on file Group ID:Not on file Type:Self Pay Address: [place], [place] * Guarantor: LEIGH ANN TSANG Account Type Relation to Patient Date of Phone Billing Address Personal/Family [address] [place] [address] [facility] SELF PAY NO INSURANCE Member Subscriber Plan / Payer (Ef fective for All Dates) Name:Leigh Ann Tsang Member ID:Not on file Relation to Subscriber:Not on file Name:LEIGH ANN TSANG Subscriber ID:Not on file Address: [facility] [place] [address] Payer ID:Not on file Group ID:Not on file Type:Self Pay Address: [place], [place] * Guarantor: LEIGH ANN TSANG Account Type Relation to Patient Date of Phone Billing Address Personal/Family [address] [place] [address] [facility] SELF PAY NO INSURANCE Member Subscriber Plan / Payer (Ef fective for All Dates) Name:Leigh Ann Tsang Member ID:Not on file Relation to Subscriber:Not on file Name:LEIGH ANN TSANG Subscriber ID:Not on file Address: [facility] [place] [address] Payer ID:Not on file Group ID:Not on file Type:Self Pay Address: [place], [place] Care Teams Staging Technician Relationship Specialty Start Date End Date Marie Lambert MD [address] [place] [place] [address] PCP - General 11/27/21
--- OUTSIDE RECORDS SUMMARY | 2025-04-10 03:04 | XMS_ITS | Encounter Summary ---
Author Organization [facility] Address [facility] [place] [address] Care Team Providers Care Guzzler Builder Name Role Phone Medardo Ramsey MD Primary Care Provider [phone] Maryanne Serrano APNP Unavailable [phone] Encounter Details Date Type Department Care Team (Late st Contact Info) Description 04/27/2022 Medminder [facility] Patient Accounts [address] [place] [address] [facility], [facility] Provider Monthly Credit Card Payment Social History [...] Coronavirus/COVID-19? No / Unsure 04/14/2022 11:48 AM LOOM TUNER documented as of this encounter Plan of Treatment Not on file documented as of this encounter Visit Diagnoses Not on filedocumented in this encounter Additional Health Concerns Assessment Noted Time PHQ-9 Depression Total Score: 0 04/18/20 21 10:44 AM LOOM TUNER documented as of this encounter Care Teams Guzzler Builder Relationship Specialty Start Date End Date Medardo Ramsey MD [address] [place] [address] PCP - General 04/26/14 Maryanne Serrano APNP [address] [place] [address] Nurse Practitioner NURSE PRACTITIONER 04/21/23 documented as of this encounter
--- OUTSIDE RECORDS SUMMARY | 2025-04-10 03:04 | XMS_ITS | Encounter Summary ---
Author Organization [facility] Address [facility] [place] [address] Care Team Providers Care Component Lab Tech Name Role Phone Medardo Ramsey MD Primary Care Provider [phone] Maryanne Serrano APNP Unavailable [phone] Encounter Details Date Type Department Care Team (Late st Contact Info) Description 11/19/2021 Lift [facility] Patient Accounts [address] [place] [address] [facility], [facility] Provider Auto Pay Payment Plan Social History [...] Total Score: 0 04/18/20 21 10:44 AM CLAIMS SERVICE REPRESENTATIVE documented as of this encounter Care Teams Component Lab Tech Relationship Specialty Start Date End Date Medardo Ramsey MD [address] [place] [address] PCP - General 04/26/14 Maryanne Serrano APNP [address] [place] [address] Nurse Practitioner NURSE PRACTITIONER 04/21/23 documented as of this encounter
--- OUTSIDE RECORDS SUMMARY | 2025-04-10 03:04 | XMS_ITS | Encounter Summary ---
Author Organization [facility] Address [address] [place] [address] Care Team Providers Care Podiatry Doctor Name Role Phone Medardo Ramsey MD Primary Care Provider [phone] Maryanne Serrano Unavailable [phone] Encounter Details Date Type Department Care Team (Late st Contact Info) Description 11/04/2022 Amp'd Mobile Message [facility] Medical Group [facility] [address] [place] [address] [place], [facility] Provider Air Quality Message Social History [...] Total Score: 0 04/18/20 21 10:44 AM DEVELOPMENTAL BEHAVIORAL PHYSICIAN documented as of this encounter Care Teams Podiatry Doctor Relationship Specialty Start Date End Date Medardo Ramsey MD [address] [place] [address] PCP - General 04/26/14 Maryanne Serrano APNP [address] [place] [address] Nurse Practitioner NURSE PRACTITIONER 04/21/23 documented as of this encounter
--- OUTSIDE RECORDS SUMMARY | 2025-04-10 03:04 | XMS_ITS | Clinical Summary ---
Author Organization [facility] Address [facility] [place] [address] Care Team Providers Care Manager Creative Name Role Phone Medardo Ramsey MD Primary Care Provider [phone] Maryanne Serrano APNP Unavailable [phone] Allergies Active Allergy Reactions Criticality Noted Date [...] Mammogram Screening 09/23/2023 09/22/2021, 04/21/2019 PHQ-2 (Physician [facility]) 05/10/2024 05/20/2023 Annual Physical 05/20/2024 05/20/2023, 08/22/2020, [...] HEPATITIS C ANTIBODY Routine 04/14/2022 2:37 PM IT COMPLIANCE ANALYST Unprotected sex MAMMOGRAM GENERIC (SCAN ORDER) 09/22/2021 from Last 3 Months or Most Recently Relevant to Health Maintenance Results * HEPATITIS C ANTIBODY ([facility]) (04/14/2022 2:37 PM IT COMPLIANCE ANALYST) HEPATITIS C AB NON-REACTI VE NON-REACT TAYLOR 04/15/2022 1:46 PM IT COMPLIANCE ANALYST [facility] Comment: ANTIBODIES TO HCV NOT DETECTED. DOES NOT EXCLUDE THE POSSIBILITY OF EXPOSURE TO HCV. 04/14/2022 2:37 PM IT COMPLIANCE ANALYST us [facility] Final Resul t [facility] [address] [place] [address], [id number] * MAMMOGRAM GENERIC (09/22/2021) Anatomical Region Laterality Modality Other 09/22/2021 Narrative 09/22/2021 Ordered by an unspecified provider. us Documents Scanned SCANNING Final Result from Last 3 Months or Most Recently Relevant to Health [place] [address] [facility] Advance Directives * Full Code (Latest Code Status on File) Date Activated Date Inactivated Comments 12/27/2017 1:30 PM 12/28/2017 8:06 PM Care Teams Manager Creative Relationship Specialty Start Date End Date Medardo Ramsey MD [address] [place] [address] PCP - General 04/26/14 Maryanne Serrano APNP [address] [place] [address] Nurse Practitioner NURSE PRACTITIONER 04/21/23
[2025-04-10] MEDS: KETOROLAC 15 MG/ML VIAL (*BKC) IV PUSH (06:30)
[2025-04-10] MEDS: ACETAMINOPHEN 500 MG TABLET 1000 MG PO (06:30)
[2025-04-10] MEDS: LACTATED RINGERS 1,000 ML 30 ML IV CONT (06:35)
--- NOTE | 2025-04-10 07:06 | WPDANESEPPF ---
Anes - Initial Pre Proc Eval Procedure: Operation Date: 04/10/25 07:30 Proposed Procedures p Robotic Assisted Laparoscopic Left Salpingo-Oophorectomy - Cory Head MD Date/Time: 04/10/25 07:06 Surgeon: Cory Head MD Pre Op Diagnosis: left sided pelvic pain Patient Data Age: 54 Gender: F Height: 1.63 m Weight: 57.7 kg Last Vital Signs Temp 36.6 C 04/10/25 06:30 Pulse 80 04/10/25 06:30 Resp 18 04/10/25 06:30 BP 137/83 04/10/25 06:30 Pulse Ox 99 04/10/25 06:30 O2 Del Method Room Air 04/10/25 06:30 Allergies Allergy/AdvReac Type Severity Reaction Status Date / Time iohexol (From contrast - CT, Allergy Mild Hives Verified 04/10/25 06:46 X-RAY) shellfish derived Allergy Mild Hives Verified 04/10/25 06:46 butorphanol AdvReac Intermediate Confusion, Verified 04/10/25 06:46 DIFFICULTY RESPONDING Home Medications ?Medication ?Instructions ?Recorded ?Confirmed ?Type estradiol 0.5 mg tablet 0.5 mg PO DAILY #90 tabs 10/03/24 04/04/25 Rx estradiol 0.01% (0.1 mg/gram) 1 g vaginal 3XW #42.5 grams 01/29/25 04/04/25 Rx vaginal cream Patient hx anesthesia problems: post op nausea/vomiting Family hx anesthesia problems: none Results Review: All pre-operative results and documents have been reviewed as part of the pre-operative evaluation. [facility] Past Medical History Medical History Cholelithiasis Periumbilical abdominal tenderness with rebound tenderness Abdominal cramping Acute diarrhea Blood in stool Screening mammogram, encounter for Miscarriage Ectopic 03/11/95 01/17/02 Anxiety and depression Colon cancer screening Gastroparesis GERD (gastroesophageal reflux disease) Duodenal ulcer Asthma Esophageal stricture Surgical History Surgical History Hx laparoscopic cholecystectomy 09/16/22 History of suburethral sling procedure (~2010) History of robot-assisted laparoscopic hysterectomy (06/23/12) RA TLH--fibroids History of endometrial ablation History of gynecologic surgery treatment of ectopic x2 History of colonoscopy (11/26/21) Family History Family History Father Acute myocardial infarction, Onset Age: 46 Heart disease Hypertension Sibling Afib Pacemaker Mother Kidney malignancy Congestive heart failure Heart disease Hypertension Malignant tumor of urinary bladder Primary malignant neoplasm of urethra Breast cancer, Onset Age: 72 triple negative breast cancer Daughter Diabetes mellitus Grandparent Cerebrovascular accident maternal grandmother Social History Social History Smoking status: Never smoker Second hand tobacco smoke exposure: No Alcohol intake: current Drinks per week: 0 Alcohol use details: Sometimes; maybe once a month Substance use: never Substance use type: does not use Lack of Transportation: No Lack of Food: Never True Current Housing: I Have Housing Concerned About Future Housing: No Difficulty Paying Gas/Electric Bills: No Difficulty Paying for Meds: No Currently Unemployed: No Education: High School Diploma/GED Difficulty w/ Childcare or Family Care: No Living arrangements: with family Additional living arrangements comments: 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 Gender identity (if verbalized by the patient): Female Sexual Orientation (if Verbalized by the Patient): Straight or Heterosexual Spiritual care concerns: No Anes - Eval Final PreProcedure Day of Procedure 04/10/25 07:06 Patient weight: normal Heart: regular rate and rhythm Lungs: clear to auscultation Airway: Mallampati scale class III Neurological: alert and oriented Last oral intake: >/= 8 hours ASA classification: II Emergent: no Anesthetic plan: proceed Anesthesia type and monitoring: general ETT and standard monitoring Results Review: All pre-operative results and documents have been reviewed as part of the pre-operative evaluation. Informed Consent: The patient's anesthetic plan and its attendant risks and benefits were discussed with the patient/family/POA. Questions were solicited and answers provided to the satisfaction of the patient/family/POA.
--- NOTE | 2025-04-10 07:20 | WPDHPUPDATE1 ---
History and Physical Update Update Date/Time: 04/10/25 07:20 History and Physical has been reviewed, including an updated exam of the patient. There are NO changes in the patient's condition. Risks, benefits, and alternatives have been discussed and questions answered. Patient agrees to proceed with procedure.
[2025-04-10] MEDS: SCOPOLAMINE 1 MG PATCH 1 PATCH TRANSDERM (07:30)
--- NOTE | 2025-04-10 08:15 | S_PTH ---
PATIENT: Leigh Ann Jay LOC: [facility] U#:[id number] AGE/SX: 54/F ROOM: RE04/10/[address]: Cory Head MD : 1970 BED: DIS: 04/10/2025 SPEC #: [id number] RECD: 04/10/25 10:09 STATUS: SUKHJINDER REQ #: [id number] STANISLAV: 04/10/25 08:[address]: Cory Head DEPT: [facility] Surgical RECD BY: Rosalee Nuñez ENTERED: 04/10/25 10:09 SP TYPE: Surgical OTHR DR: Aron CaceresMD Tissues: A - Ovary Procedures: Hematoxylin and Eosin Stain Gross and Microscopic Level 4
--- NOTE | 2025-04-10 08:16 | W.PM.PROC2 ---
Procedure Note - Detailed Date of Procedure 04/10/25 Pre-op Diagnosis left sided pelvic pain Post-op Diagnosis Same Procedure Performed 1. Adhesiolysis 2. Left salpingo oophorectomy Surgeon Cory Head MD Anesthesia General Findings Uterus surgically absent. Right tube and ovary without abnormality. Left tube and ovary adhered to pelvic sidewall and vaginal cuff. Omentum adhered to the anterior abdominal. Description of Procedure Patient prepped draped usual manner for this procedure. Trocar sites were marked and all were placed under direct visualization. Omental adhesions were taken down sharply and bluntly to restore normal anatomy. The left ovary was sharply and bluntly dissected off the pelvic sidewall and the infundibulopelvic ligament was skeletonized cauterized and cut. The specimen was removed through the right upper quadrant incision. There was no bleeding and at this point the procedure was considered terminated, gas was allowed to escape, incisions approximated in the patient's at the recovery room in stable condition. Estimated Blood Loss 10 Drains No Packing No Pathology Yes Complications No immediate complications Condition Stable Disposition PACU [facility] Billing Surgery - Charge Forward: Surgery Billing
[2025-04-10] MEDS: fentaNYL CITRATE INJ (*CRX) 100 MCG/2 ML VIAL 25 MCG IV PUSH ×8 (08:36→10:33)
[2025-04-10] MEDS: ONDANSETRON INJ 4 MG/2 ML VIAL IV PUSH (08:37)
[2025-04-10] MEDS: oxyCODONE HCL (*CRX) 5 MG TAB IR PO (09:38)
== END 2025-04-10 10:57 | disposition home or self-care (01) ==
PROVIDERS: PCP Internal Medicine; Visit Provider Obstetrics & Gynecology
PROC: 8E0W4CZ Robotic Assisted Procedure of Trunk Region, Percutaneous Endoscopic Approach (ICD-10-PCS; CPT 49320; principal; 2025-04-10 07:30)
DX: N73.6 Female pelvic peritoneal adhesions (postinfective) (principal)
CPT/HCPCS: 58661; 88305; A9270; J1100; J1885; J2003; J2250; J2405; J2704; J3010; J7030; J7120